=== PATIENT | male | born 1950 | race Caucasian/White ===

== ENCOUNTER 2019-09-21 13:36 | Outpatient (CLI) | payer MEDICARE, OTHER, SELFPAY ==
--- NOTE | ~2019-09-21 | CT_ITS ---
EXAMINATION: CT sinus wo con DATE: 09/21/2019 14:07 INDICATION: Chronic congestion. Chronic sinusitis. TECHNIQUE: Computed tomography (CT) of the paranasal sinuses was performed without contrast. Iterativ e reconstruction technique was employed. Exam dose: 269.96 mGy-cm total exam DLP. COMPARISON: None FINDINGS: There is rightward deviation of the nasal septum. Bilateral fernando bullosa of the middle nasal turbinates. There is interlamellar cell of the left midd le nasal turbinate as well. The nasal turbinates are moderately symmetrically enlarged. With the exce ption of partial opacification of the right ethmoid bulla, the ostiomeatal units are patent. With the exception of mild patchy opacification occasional bilateral ethmoid air cells, the paranasal sinuses are normally developed and aerated. The mastoid air cells are normally developed and aerated. IMPRESSION: Mild bilateral ethmoid soft tissue opacification, opacification of right ethmoid bulla Bilateral middle nasal turbinate fernando bullosa and interlamellar cell of left middle nasal turbinate Rightward deviation of nasal septum Reviewed, dictated and finalized at Location A. Reviewed, dictated and finalized at location B. TRANSPORTATION OPERATOR
== END 2019-09-21 13:37 | disposition home or self-care (01) ==
PROVIDERS: Visit Provider Otolaryngology
DX: J32.9 Chronic sinusitis, unspecified (principal); J34.2 Deviated nasal septum
CPT/HCPCS: 70486

== ENCOUNTER 2025-07-13 03:58 | Emergency (ER) | payer MEDICARE, SELFPAY ==
--- OUTSIDE RECORDS SUMMARY | 2024-09-24 02:30 | XMS_ITS ---
Author Organization [facility] Address [address] [facility] [address] [place] [address] Care Team Providers Care Lag Screwer Name Role Phone Gume Trujillo Primary Care Provider [phone] Ronnie AUSTIN, Gume Unavailable Unavailable REASON FOR VISIT AWV Encounters Encounter Location Date Provider Diagnosis [facility] [address] [facility] [address] [place] [address] 09/24/2024 Gume Trujillo Plan Of Treatment Next Appt Details Provider Name:Gume Trujillo, 09/30/2025 08:00:00 AM, [address] [facility] [address], [place], [address], Progress Notes * Jose MORFINDOB:1950 ([age] yo M)Acc No.[id number]:09/24/2024 Progress Note Patient: Jose NUNEZ Provider: Sandra TRUJILLO MD :1950 A ge:74 Y S ex:Male Date:09/24/2024 Address:[address] [place], [place] [id number] Subjective: * Chief Complaints: * 1 . AWV. * Medical History: Objective: * Vitals: Assessment: Plan: * Treatment: * Billing Information: * Visit Code: * Procedure Codes: * Electronic signature of Carlos Trujillo MD on 07/13/2025 at 04:20 AM COMMUNITY PROGRAM ASSISTANT Sign off status: Pending * Provider: Sandra TRUJILLO MD Date: 0 09/24/2024 Generated for Zenaida churchill/Keren/Elena on: 1 09/13/2024 04:20 AM COMMUNITY PROGRAM ASSISTANT
--- OUTSIDE RECORDS SUMMARY | 2025-04-20 04:15 | XMS_ITS ---
Author Organization [facility] Address [address] [place], [place] [id number] Care Team Providers Care Rn Radiation Name Role Phone Nick Correa DO Unavailable [phone] Gume Trujillo Unavailable Unavailable Allergies No Known Allergies REASON FOR VISIT bilateral inguinal hernia Medications Medication SIG (Take, Route, Frequency, Duration) Notes Start Date End Date Status Propranolol HCl 10 MG Oral; Duration: 90 Days Active methylPREDNISolone 4 MG Oral; Duration: 6 Days Active traZODone HCl 50 MG Oral; Duration: 90 Days Active Lisinopril 5 MG Oral; Duration: 90 Days Active Metoprolol Tartrate 50 MG Oral; Duration: 90 Days Active Vital Signs Temperature 98.6 degrees Fahrenheit 04/20/20 25 Blood pressure systolic 132 mm Hg 04/20/20 25 Blood pressure diastolic 81 mm Hg 025 Heart Rate 64 /min 04/20/2025 Height 74 in 04/20/2025 Weight 170.2 lbs 04/20/2025 BMI 21.85 kg/m2 04/20/2025 Oximetry 98 % 04/20/2025 Height-cm 187.96 cm 04/20/2025 Weight-kg 77.2 kg 04/20/2025 Encounters Encounter Location Date Provider Diagnosis [facility] [address] [place], [place] [id number] 04/20/2025 Nick Correa Plan Of Treatment Next Appt Details Provider Name:Nick chin, 07/20/2025 09:00:00 AM, [address], [place], [place], [id number], Progress Notes * Jose MORFINDOB:1950 ([age] yo M)Acc No.[id number]:04/20/2025 Patient: Jose NUNEZ Provider: Johny Correa DO :1950 A ge:75 Y S ex:Male Date:04/20/2025 Address:[address] [place], [place] [id number] Subjective: * Chief Complaints: * 1 . Bilateral inguinal hernia. * Medical History: H ypertension. * Surgical History: 1 09/19/2018 Cataract Surgery . * Medications: T aking Metoprolol Tartrate 50 MG Tablet Oral , Taking Lisinopril 5 MG Tablet Oral , Taking traZODone HCl 50 MG Tablet Oral , Taking methylPREDNISolone 4 MG Tablet Therapy Pack Oral , Taking Propranolol HCl 10 MG Tablet Oral * Allergies: N .K.D.A. Objective: * Vitals: W t:170.2, Ht: 74, HT: 6'2, BMI:21.85, Oxygen sat %:98, HR:64, BP:132/81, Temp:98.6, Wt-k.2, Ht-cm: 187.96, Body Surface Area: 2.01. Assessment: Plan: * Treatment: * Billing Information: * Visit Code: * Procedure Codes: * Electronic signature of Perry Correa DO, [id number] on 07/13/2025 at 04:20 AM PASTOR Sign off status: Pending * Provider: Johny Correa DO Date: 0 04/20/2025 Generated for Zenaida churchill/Keren/Colinitting on: 09/13/2024 04:20 AM PASTOR
--- OUTSIDE RECORDS SUMMARY | 2025-07-11 01:15 | XMS_ITS ---
Author Organization [facility] Address [address] [place], [place] [id number] Care Team Providers Care Technical Intern Name Role Phone Nick Correa DO Unavailable [phone] Gume Trujillo Unavailable Unavailable REASON FOR VISIT Inguinal hernia @730 aware Encounters Encounter Location Date Provider Diagnosis [facility] [address] [place], [place] [id number] 07/11/2025 Nick Correa Plan Of Treatment Next Appt Details Provider Name:Nick chin, 07/20/2025 09:00:00 AM, [address], [place], [place], [phone], Progress Notes * NAVJOTJose EvansDOB:1950 ([age] yo M)Acc No.[id number]:07/11/2025 Patient: Jose NUNEZ Provider: Johny Correa DO :1950 A ge:75 Y S ex:Male Date:07/11/2025 Address:[address] [place], [place] [id number] Subjective: * Chief Complaints: * 1 . Inguinal hernia @730 aware. * Medical History: Objective: * Vitals: Past Vitals:* 04/20/2025 Wt:170.2, BMI:21.85, BP:132/ 81 Assessment: Plan: * Treatment: * Billing Information: * Visit Code: * Procedure Codes: * Electronic signature of Perry Correa DO, [id number] on 07/13/2025 at 04:20 AM DECK MATE Sign off status: Pending * Provider: Johny Correa DO Date: 09/11/2024 Generated for Zenaida churchill/Keren/Elena on: 09/13/2024 04:20 AM DECK MATE
[2025-07-13] VITALS (41 sets, daily range): BP systolic 106–158; BP diastolic 62–93; PULSE 66–145; RESP 10–29; TEMP 36.8–37.6; O2SAT 91–100
--- NOTE | ~2025-07-13 | XR_ITS ---
EXAMINATION: AP abdomen: DATE: 07/13/2025 INDICATION: Nasogastric tube placement. TECHNIQUE: Supine AP view of the abdomen were obtained. COMPARISON: Small bowel follow-through dated 07/13/2025. FINDINGS: Tip of the nasogastric tube is in the proximal stomach. Contrast is noted in the fundus of the stomach. Contrast is also noted in the small bowel loops from earlier study. IMPRESSION: 1. . A nasogastric tube is noted within the proximal stomach. Reviewed, dictated and finalized at location T. ER PRINTER
--- NOTE | ~2025-07-13 | CT_ITS ---
EXAMINATION: CT abdomen pelvis w con DATE: 07/13/2025 05:46 INDICATION: Abdominal pain. TECHNIQUE: Computed tomography (CT) of the abdomen and pelvis was performed with 100 mL Omnipaque 350 intravenous contrast. Automated exposure control and iterative reconstruction technique were employed. The dose-length product was 436.38 mGy-cm. COMPARISON: None. FINDINGS: The visualized portions of the lung bases demonstrate mild atelectasis. No pleural effusion. The heart size is normal. There are coronary artery calcifications. No pericardial effusion. The liver, gallbladder, spleen, pancreas, and adrenal glands are normal. There are cysts in the kidneys rojas suring up to 2.6 cm on the right. The appendix is normal. There are multiple dilated loops of small bowel with possible transition point in left lower quadrant. The distal small bowel is decompressed. There is gas in the anterior pelvic soft tissues, consistent with recent surgery. There is fluid in left inguinal canal, likely a seroma. There is an umbilical hernia containing a wall of nonobstructed small bowel. There are no pathologically enlarged lymph nodes. There is a small volume of ascites. There is severe lumbar spondylosis. IMPRESSION: 1. Dilated small bowel with possible transition point in left lower quadrant, consistent with adynamic ileus versus small bowel obstruction. 2. Umbilical hernia containing a wall of nonobstructed small bowel. 3. Small volume of ascites. Reviewed, dictated and finalized at location E. UET DIRECTOR IMPRESSION: 1. Dilated small bowel with possible transition point in left lower quadrant, c onsistent with adynamic ileus versus small bowel obstruction. 2. Umbilical hernia containing a wall of nonobstructed small bowel. 3. Small volume of ascites.
--- NOTE | ~2025-07-13 | XR_ITS ---
Examination: XR abdomen gastric tube insert Clinical History: NG placement Comparison: CT abdomen pelvis earlier same day Technique: Portable AP upright abdomen Findings/impression: 1. NG tube in place with sidehole just past GE junction. 2. Small bowel obstruction poorly seen. Reviewed, dictated and finalized at location R. ANT PRINT OPERATOR
--- NOTE | ~2025-07-13 | XR_ITS ---
EXAM/PROCEDURE: XR sm bowel follow through WS HISTORY: Ileus vs SBO COMPARISON: None available. TECHNIQUE: 240 mL water-soluble contrast injected into gastric catheter. After approximately 1.5 hours, 100 mL was aspirated. FINDINGS: On the rib puller image, gastric catheter is present. On the 15 minute image, small amount of contrast extends into the duodenum. At 30 minutes, contrast extends into the proximal jejunum. Contrast flows through most of the jejunum by 3 hours but does not clearly extend to the distal ileum at 5.5 hours. No extravasation of contrast seen. No obvious mass identified. IMPRESSION: Abnormally delayed passage of contrast with no contrast extending through the distal or terminal ileum at 5.5 hours. Findings are consistent with severe ileus or small bowel obstruction. A follow-up KUB in 4 to 6 hours may be helpful in further characterizing passage of enteric contrast and the possible presence of small bowel obstruction. Reviewed, dictated and finalized at location A. EL RETROFIT DESIGNER IMPRESSION: Abnormally delayed passage of contrast with no contrast extending through the d istal or terminal ileum at 5.5 hours. Findings are consistent with severe ileus or small bowel obstruction. A follow-up KUB in 4 to 6 hours may be helpful in further characterizing passage of enteric contrast and the possible presence of small bowel obstruction.
[2025-07-13] MEDS: LACTATED RINGERS 1,000 ML 999 ML IV CONT ×2 (04:07→04:41)
--- NOTE | 2025-07-13 04:14 | ED_ITS ---
HPI - General Adult General Chief complaint: Abdominal Pain <Sánchez Guerrero MD - Last Filed: 07/13/25 06:53> Stated complaint: Abd pain/vomiting; recent hernia surg <Sánchez Guerrero MD - Last Filed: 07/13/25 06:53> Time Seen by Provider: 07/13/25 04:02 <Sánchez Guerrero MD - Last Filed: 07/13/25 06:53> History of Present Illness HPI narrative: 75-year-old male present to the emergency department for evaluation for nausea abdominal cramping and abdominal pain. Patient did have laparoscopic hernia repair at [facility] on Friday morning. Patient reports he started having worsening pain and nausea with the course of the evening. Patient called EMS and EN route patient was treated with 4 mg of Zofran he states this did help his symptoms. <Sánchez Guerrero MD - Last Filed: 07/13/25 06:53> Related Data Allergies/adverse reactions: Allergies Allergy/AdvReac Type Severity Reaction Status Date / Time No Known Allergies Allergy Verified 07/13/25 04:06 <Sánchez Guerrero MD - Last Filed: 07/13/25 06:53> Review of Systems 2 Review of Systems: All systems reviewed & are unremarkable except as noted in HPI and below <Sánchez Guerrero MD - Last Filed: 07/13/25 06:53> [facility] Past Medical History Medical History: Medical History (Updated 07/13/25 @ 17:29 by Dennis Mike MD) Hypertension Afib <Sánchez Guerrero MD - Last Filed: 07/13/25 06:53> Surgical History Surgical History: Surgical History (Updated 07/13/25 @ 17:28 by Dennis Mike MD) H/O inguinal hernia repair <Sánchez Guerrero MD - Last Filed: 07/13/25 06:53> Exam 2 Narrative: APPEARANCE: Uncomfortable appearing HEAD: normocephalic, atraumatic. EYES: PERRLA/EOMI, conjunctivae clear. NOSE: Normal no drainage NECK: Supple. No adenopathy, no masses. RESPIRATORY: Airway patent, respirations nonlabored. Clear to auscultation bilaterally, no rales, rhonchi, wheezing. CARDIOVASCULAR: Regular rate and rhythm without murmurs rubs or gallops. ABDOMINAL: Distended abdomen, decreased bowel sounds, well-appearing trocar sites MUSCULOSKELETAL: Moves all extremities. Strength/ROM intact, No edema, No calf tenderness. NEURO: Alert. Cranial nerves II through XII intact. Good gait. Good coordination SKIN: Warm, dry. Normal Color (Copy and paste of Dr. Guerrero's exam a nd placed in the proper section of the chart) <Dennis Mike MD - Last Filed: 07/13/25 18:00> Course Course Emergency Course: APPEARANCE: Uncomfortable appearing HEAD: normocephalic, atraumatic. EYES: PERRLA/EOMI, conjunctivae clear. NOSE: Normal no drainage NECK: Supple. No adenopathy, no masses. RESPIRATORY: Airway patent, respirations nonlabored. Clear to auscultation bilaterally, no rales, rhonchi, wheezing. CARDIOVASCULAR: Regular rate and rhythm without murmurs rubs or gallops. ABDOMINAL: Distended abdomen, decreased bowel sounds, well-appearing trocar sites MUSCULOSKELETAL: Moves all extremities. Strength/ROM intact, No edema, No calf tenderness. NEURO: Alert. Cranial nerves II through XII intact. Good gait. Good coordination SKIN: Warm, dry. Normal Color <Sánchez Guerrero MD - Last Filed: 07/13/25 06:53> Vital Signs Vital signs: Vital Signs Temperature 98.2 F 07/13/25 03:58 Pulse Rate 67 07/13/25 03:58 Respiratory Rate 15 07/13/25 03:58 Blood Pressure 145/75 H 07/13/25 03:58 Pulse Oximetry 95 07/13/25 03:58 Oxygen Delivery Room Air 07/13/25 03:58 Temperature 98.5 F 07/13/25 06:00 Pulse Rate 145 H 07/13/25 17:20 Respiratory Rate 14 07/13/25 14:31 Blood Pressure 143/79 H 07/13/25 17:20 Pulse Oximetry 98 07/13/25 14:00 Oxygen Delivery Room Air 07/13/25 03:58 <Sánchez Guerrero MD - Last Filed: 07/13/25 06:53> Vital Signs Temperature 98.2 F 07/13/25 03:58 Pulse Rate 67 07/13/25 03:58 Respiratory Rate 15 07/13/25 03:58 Blood Pressure 145/75 H 07/13/25 03:58 Pulse Oximetry 95 07/13/25 03:58 Oxygen Delivery Room Air 07/13/25 03:58 Temperature 98.5 F 07/13/25 06:00 Pulse Rate 145 H 07/13/25 17:20 Respiratory Rate 14 07/13/25 14:31 Blood Pressure 143/79 H 07/13/25 17:20 Pulse Oximetry 98 07/13/25 14:00 Oxygen Delivery Room Air 07/13/25 03:58 <Dennis Mike MD - Last Filed: 07/13/25 18:00> [facility] MDM Narrative Medical decision making narrative: [age] old male presents emergency department for evaluation for abdominal pain postop. Patient is currently afebrile but does have a leukocytosis of 12.1 hemoglobin of 14.9. INR 1.1. No significant abnormalities on his CMP UA was negative for infection. CT scan is concerning for a small bowel obstruction with a transition point in the left lower quadrant. Patient had surgery at [facility] by Dr. Chow. NG tube is being placed for decompression. I did touch base with surgeon on-call for [place] and he did recommend touching base with [facility] as well. I did discuss the case with transfer services at [facility] and at time of sign-out physician call Back is pending. Patient's son, Charles Morfin, is a vascular surgeon at [facility]. His call back nbumber [phone] <Sánchez Guerrero MD - Last Filed: 07/13/25 06:53> [age] old male presents emergency department for evaluation for abdominal pain postop. Patient is currently afebrile but does have a leukocytosis of 12.1 hemoglobin of 14.9. INR 1.1. No significant abnormalities on his CMP UA was negative for infection. CT scan is concerning for a small bowel obstruction with a transition point in the left lower quadrant. Patient had surgery at [facility] by Dr. Chow. NG tube is being placed for decompression. I did touch base with surgeon on-call for [place] and he did recommend touching base with [facility] as well. I did discuss the case with transfer services at [facility] and at time of sign-out physician call Back is pending. Patient's son, Charles Morfin, is a vascular surgeon at [facility] in [place]. His call back bumber [phone] 1721: Patient has had a prolonged stay in the emergency room. I did speak with the patient's general surgeon at [facility] early this morning. He recommended the patient receive a small bowel follow-through to evaluate for possible obstruction versus ileus. Patient has had a 5.5 hour course of imaging and there is still concern for severe ileus versus bowel obstruction. I have spoken with the patient's son in [place]. I have called back the transfer line to inform them of the imaging results. I did not receive a return call from [facility] so I called them back again. Apparently the general surgeon had relayed to the transfer line that he still only thinks that this is a bowel obstruction and does not want the patient transferred because he does not want the patient to get a bill. Unfortunately patient has also gone into atrial fibrillation with rapid ventricular rate. He has been given IV metoprolol 5mg, IV diltiazem 10mg, and placed on diltiazem drip without improvement of his heart rate. He has also received 3 L IV fluid through his duration in the ER. Patient is not having chest pain or shortness of breath. He has had over 1200 mL of output from his NG tube. Patient has had multiple episodes of antiemetics and Dilaudid for pain. 1757: Accepted by Dr. Garner at [facility]. Patient with significant tachycardia still despite treatment of the atrial fibrillation. Will discontinue the drip and give patient a 1 time push of amiodarone at the request of the hospitalist at [facility] and then they will manage him from there. <Dennis Mike MD - Last Filed: 07/13/25 18:00> Differential Diagnosis Differential Diagnosis: Small-bowel obstruction, perforated viscus, ileus, urinary retention < Dennis Mike MD - Last Filed: 07/13/25 18:00> Lab Data MDM Lab Attestation statement: I personally reviewed the patient's lab results. <Dennis Mike MD - Last Filed: 07/13/25 18:00> Result diagrams: 07/13/25 04:10 07/13/25 04:10 <Sánchez Guerrero MD - Last Filed: 07/13/25 06:53> Labs: Lab Results 07/13/25 07/13/25 07/13/25 Range/Units 04:10 05:57 06:24 WBC 12.1 H (4.5-10.0) K/mm3 RBC 4.46 L (4.6-6.20) M/mm3 Hgb 14.9 (14.0-18.0) g/dL Hct 43.7 (42.0-52.0) % MCV 98.0 (80-100) fl MCH 33.4 (26-34) pg MCHC 34.1 (32-36) g/dl RDW 12.4 (11.5-14.5) % Plt Count 196 (150-375) k/mm3 MPV 10.7 H (7.4-10.4) fl Immature Gran % (Auto) 0.3 (0-0.5) % Neut % (Auto) 81.8 H (45.5-73.1) % Lymph % (Auto) 6.2 L (18.3-44.2) % Rush % (Auto) 11.4 H (2.6-8.5) % Eos % (Auto) 0.0 (0-4.4) % Baso % (Auto) 0.3 (0.2-1.2) % Lymph # (Auto) 0.75 L (0.9-3.2) K/mm3 Rush # (Auto) 1.4 H (0.1-0.6) K/mm3 Eos # (Auto) 0.0 (0-0.3) K/mm3 Baso # (Auto) 0.0 (0.0-0.1) K/mm3 Abs Immat Gran (auto) 0.04 H (0.00-0.031) K/mm3 Absolute Neuts (auto) 9.9 H (1.3-6.7) K/mm3 Absolute Nucleated RBC 0.000 (0.0-0.012) K/mm3 Nucleated RBC % 0.0 (0.0-0.2) % PT 14.3 (11.1-14.7) Seconds INR 1.1 APTT 24.8 (22.3-36.8) Seconds Sodium 135 L (137-145) mmol/L Potassium 4.1 (3.4-5.0) mmol/L Chloride 102 (98-107) mmol/L Carbon Dioxide 28 (22-30) mmol/L Anion Gap 5 (4-12) mmol/L BUN 32 H (9-20) mg/dL Creatinine 1.45 H (0.7-1.3) mg/dL Estim Creat Clear Calc 45 ml/min Estimated GFR 48 L (59 - ) Glucose 147 H (65-110) mg/dL Lactic Acid 2.4 H 1.9 (0.7-2.0) mmol/L Calcium 10.1 (8.4-10.2) mg/dL Total Bilirubin 1.0 (0.2-1.3) mg/dL AST 41 (17-59) U/L ALT 26 (6-50) U/L Alkaline Phosphatase 78 (38-126) U/L Total Protein 7.6 (6.3-8.2) g/dL Albumin 4.2 (3.5-5.1) g/dL Lipase 65 (23-300) U/L Urine Color Yellow (Yellow) Urine Appearance Clear (Clear) Urine pH 5.5 (5.0-9.0) Ur Specific [place] > 1.045 H (1.001-1.035) Urine Protein Trace (Negative) mg/dL Urine Glucose (UA) Negative (Negative) mg/dL Urine Ketones 1+ H (Negative) mg/dL Ur Blood (Man) Negative (Negative) Urine Nitrate Negative (Negative) Urine Bilirubin Negative (Negative) Urine Urobilinogen 0.2 (<2.0) mg/dL Leukocyte Esterase Rfl Negative (Negative) SOCORRO/UL Urine RBC 0-2 (0-2) /hpf Urine WBC 0-5 (0-3) /hpf Ur Squamous Epith Cells None seen (Few) /hpf Urine Bacteria None seen /hpf Urine Casts 3-5 <Sánchez Guerrero MD - Last Filed: 07/13/25 06:53> Lab Results 07/13/25 07/13/25 07/13/25 Range/Units 04:10 05:57 06:24 WBC 12.1 H (4.5-10.0) K/mm3 RBC 4.46 L (4.6-6.20) M/mm3 Hgb 14.9 (14.0-18.0) g/dL Hct 43.7 (42.0-52.0) % MCV 98.0 (80-100) fl MCH 33.4 (26-34) pg MCHC 34.1 (32-36) g/dl RDW 12.4 (11.5-14.5) % Plt Count 196 (150-375) k/mm3 MPV 10.7 H (7.4-10.4) fl Immature Gran % (Auto) 0.3 (0-0.5) % Neut % (Auto) 81.8 H (45.5-73.1) % Lymph % (Auto) 6.2 L (18.3-44.2) % Rush % (Auto) 11.4 H (2.6-8.5) % Eos % (Auto) 0.0 (0-4.4) % Baso % (Auto) 0.3 (0.2-1.2) % Lymph # (Auto) 0.75 L (0.9-3.2) K/mm3 Rush # (Auto) 1.4 H (0.1-0.6) K/mm3 Eos # (Auto) 0.0 (0-0.3) K/mm3 Baso # (Auto) 0.0 (0.0-0.1) K/mm3 Abs Immat Gran (auto) 0.04 H (0.00-0.031) K/mm3 Absolute Neuts (auto) 9.9 H (1.3-6.7) K/mm3 Absolute Nucleated RBC 0.000 (0.0-0.012) K/mm3 Nucleated RBC % 0.0 (0.0-0.2) % PT 14.3 (11.1-14.7) Seconds INR 1.1 APTT 24.8 (22.3-36.8) Seconds Sodium 135 L (137-145) mmol/L Potassium 4.1 (3.4-5.0) mmol/L Chloride 102 (98-107) mmol/L Carbon Dioxide 28 (22-30) mmol/L Anion Gap 5 (4-12) mmol/L BUN 32 H (9-20) mg/dL Creatinine 1.45 H (0.7-1.3) mg/dL Estim Creat Clear Calc 45 ml/min Estimated GFR 48 L (59 - ) Glucose 147 H (65-110) mg/dL Lactic Acid 2.4 H 1.9 (0.7-2.0) mmol/L Calcium 10.1 (8.4-10.2) mg/dL Total Bilirubin 1.0 (0.2-1.3) mg/dL AST 41 (17-59) U/L ALT 26 (6-50) U/L Alkaline Phosphatase 78 (38-126) U/L Total Protein 7.6 (6.3-8.2) g/dL Albumin 4.2 (3.5-5.1) g/dL Lipase 65 (23-300) U/L Urine Color Yellow (Yellow) Urine Appearance Clear (Clear) Urine pH 5.5 (5.0-9.0) Ur Specific [place] > 1.045 H (1.001-1.035) Urine Protein Trace (Negative) mg/dL Urine Glucose (UA) Negative (Negative) mg/dL Urine Ketones 1+ H (Negative) mg/dL Ur Blood (Man) Negative (Negative) Urine Nitrate Negative (Negative) Urine Bilirubin Negative (Negative) Urine Urobilinogen 0.2 (<2.0) mg/dL Leukocyte Esterase Rfl Negative (Negative) SOCORRO/UL Urine RBC 0-2 (0-2) /hpf Urine WBC 0-5 (0-3) /hpf Ur Squamous Epith Cells None seen (Few) /hpf Urine Bacteria None seen /hpf Urine Casts 3-5 <Dennis Mike MD - Last Filed: 07/13/25 18:00> Imaging Data Radiologist's impression: ITS Impressions Abdomen/Pelvis CT 07/13/25 07:16 IMPRESSION: 1. Dilated small bowel with possible transition point in left lower quadrant, consistent with adynamic ileus versus small bowel obstruction. 2. Umbilical hernia containing a wall of nonobstructed small bowel. 3. Small volume of ascites. Small Bowel X-Ray 07/13/25 14:51 IMPRESSION: Abnormally delayed passage of contrast with no contrast extending through the distal or terminal ileum at 5.5 hours. Findings are consistent with severe ileus or small bowel obstruction. A follow-up KUB in 4 to 6 hours may be helpful in further characterizing passage of enteric contrast and the possible presence of small bowel obstruction. Overnight read, CT abdomen pelvis with contrast impression mildly dilated fluid- filled loops of small bowel seen with abdomen and pelvis with underdistention and distal small bowel loops and probable transition point left lower quadrant. Findings are consistent with small-bowel obstruction. Recommend surgical consultation. Mild free fluid seen within the abdomen pelvis. Minimal mesenteric edema. No definite bowel wall thickening. No bowel wall pneumatosis. No gross pneumoperitoneum. Postsurgical changes seen within the left inguinal region with subcutaneous gas in the groin and upper thighs. No acute appendicitis. No obstructive uropathy. No airspace consolidation, pulmonary edema or pleural effusion. <Sánchez Guerrero MD - Last Filed: 07/13/25 06:53> ITS Impressions Abdomen/Pelvis CT 07/13/25 07:16 IMPRESSION: 1. Dilated small bowel with possible transition point in left lower quadrant, consistent with adynamic ileus versus small bowel obstruction. 2. Umbilical hernia containing a wall of nonobstructed small bowel. 3. Small volume of ascites. Small Bowel X-Ray 07/13/25 14:51 IMPRESSION: Abnormally delayed passage of contrast with no contrast extending through the distal or terminal ileum at 5.5 hours. Findings are consistent with severe ileus or small bowel obstruction. A follow-up KUB in 4 to 6 hours may be helpful in further characterizing passage of enteric contrast and the possible presence of small bowel obstruction. <Dennis Mike MD - Last Filed: 07/13/25 18:00> ECG Data EKG #1: Attestation: I personally reviewed and interpreted this ECG as follows: <Dennis Mike MD - Last Filed: 07/13/25 18:00> ECG completion date: 07/13/25 <Dennis Mike MD - Last Filed: 07/13/25 18:00> ECG completion time: 15:33 <Dennis Mike MD - Last Filed: 07/13/25 18:00> tachycardia (132), atrial fibrillation, non-specific ST changes, normal QRS, normal QT and left axis <Dennis Mike MD - Last Filed: 07/13/25 18:00> Critical Care Time Critical Care Time Critical Care Time: Yes <Dennis Mike MD - Last Filed: 07/13/25 18:00> Time Type: Intermittent <Dennis Mike MD - Last Filed: 07/13/25 18:00> Initial evaluation, discuss w/ involved parties, attempting to gather old records: N/A <Dennis Mike MD - Last Filed: 07/13/25 18:00> Documenting medical record: 5 minutes <Dennis Mike MD - Last Filed: 07/13/25 18:00> Review of results (EKG's, labs, imaging): 10 minutes <Dennis Mike MD - Last Filed: 07/13/25 18:00> Serial repeat bedside evaluation: 10 minutes <Dennis Mike MD - Last Filed: 07/13/25 18:00> Discussing case with multiple memebers of the care team and consultants: 10 minutes <Dennis Mike MD - Last Filed: 07/13/25 18:00> Total Critical Care Time: 35 <Dennis Mike MD - Last Filed: 07/13/25 18:00> Discharge Plan Discharge Clinical Impression: Atrial fibrillation with RVR, SBO (small bowel obstruction) <Sánchez Guerrero MD - Last Filed: 07/13/25 06:53> Patient Disposition: Acute Care Hospital <Sánchez Guerrero MD - Last Filed: 07/13/25 06:53> Condition: Stable <Sánchez Guerrero MD - Last Filed: 07/13/25 06:53> Instructions: Antibiotic Form <Sánchez Guerrero MD - Last Filed: 07/13/25 06:53> Patient Language: Macedonian <Sánchez Guerrero MD - Last Filed: 07/13/25 06:53> Follow-up/Referrals: PHYSICIAN NOT ON STAFF,NONSTAFF [Non-Staff] <Sánchez Guerrero MD - Last Filed: 07/13/25 06:53>
[2025-07-13 04:18] LABS: Hematocrit 43.7 % (42.0-52.0); Hemoglobin 14.9 g/dL (14.0-18.0); Immature Granulocyte Percent A 0.3 % (0-0.5); Lymphocytes Absolute Auto 0.75 K/mm3 (0.9-3.2); Mean Corpuscular HGB Conc 34.1 g/dl (32-36); Mean Corpuscular Hemoglobin 33.4 pg (26-34); Mean Corpuscular Volume 98.0 fl (80-100); Nucleated Red Blood Cells Absolute Auto 0.000 K/mm3 (0.0-0.012); Nucleated Red Blood Cells Perc 0.0 % (0.0-0.2); Platelet Count Result 196 k/mm3 (150-375); Red Blood Count 4.46 M/mm3 (4.6-6.20); White Blood Count 12.1 K/mm3 (4.5-10.0)
--- OUTSIDE RECORDS SUMMARY | 2025-07-13 04:20 | XMS_ITS | Encounter Summary ---
Author Organization [facility] Address [address] [place] [address] Care Team Providers Care Apprentice Lineman Third Step Name Role Phone Unavailable Primary Care Provider Unavailabl e Encounter Details Date Type Department Care Team (Late st Contact Info) Description 02/09/2021 Lab Requisition [facility] Derm[facility] Lab [address] [place] [address] Hodan Doe MD [address] [place] [address] Social History Tobacco Use Types Packs/Day Years Used Date Smoking Tobacco: Never Assessed Sex and Gender Information Value Date Recorded Sex Assigned at Not on file Legal Sex Male 7:23 AM CDT Gender Identity Not on file Sexual Orientation Not on file documented as of this encounter Plan of Treatment Not on file documented as of this encounter Procedures Procedure Name Priority Date/Time Associated Diagnosis Comments DERMATOPATHOLOGY Routine 02/08/2021 12:0 0 AM CDT documented in this encounter Results * DERMATOPATHOLOGY (02/08/2021 12:00 AM CDT) Case Report Dermatopathology Report Case: [id number] Authorizing Provider: Hodan Doe MD Collected: 02/08/2021 12:00 AM Ordering Location: [facility] Derm[facility] Lab Received: 02/09/2021 01:10 PM Pathologist: Bing Hooper MD Specimen: Skin, left preauricular 6:29 PM CDT DERMATOPATHOLOGY LABORATORY Final Diagnosis Specimen A. SKIN, left preauricular: BASAL CELL CARCINOMA (C44.319) (see microscopic description) 1 6:29 PM CDT DERMATOPATHOLOGY LABORATORY at 1829 CDT Clinical History BCC. 1 6:29 PM CDT DERMATOPATHOLOGY LABORATORY Gross Description Specimen A: Received is one formalin filled container labeled with the patient's name and designated left preauricular. The specimen consists of a shave biopsy measuring [id number]. Jar 0. 1 6:29 PM CDT DERMATOPATHOLOGY LABORATORY Microscopic Description Specimen A. SKIN, left preauricular: Sections show superficial fragments of skin. Collections of basaloid cells are present in the dermis, which are highlighted on a Estrada-EP4 immunohistochemical stain. Original and deeper sections were reviewed. 1 6:29 PM CDT DERMATOPATHOLOGY LABORATORY Disclaimer An external and internal positive and negative controls are appropriate for the histochemical, immunohistochemical and immunofluorescence stain(s) in this case (if any), except where stated explicitly. The performance characteristics of the stain(s) cited in this report were developed and its performance characteristic determined by the Dermatopathology Laboratory at [facility], directed by Dr. Bret Deal. These tests need not be, and therefore are not, approved by the [place] Food and Drug Administration. The tests are used for clinical purposes. Billing Codes Specimen Charges Stain Charges 07635 1 40881 1 1 6:29 PM CDT DERMATOPATHOLOGY LABORATORY Embedded Images 1 6:29 PM CDT DERMATOPATHOLOGY LABORATORY Pathology/Cytolog y TISSUE SPECIMEN FROM SKIN / Unknown 02/08/2021 02/09/2021 1:10 PM CDT us Hodan Doe MD LAB - PATHOLOGY/CYTOLOGY O RDERABLES Final Result DERMATOPATHOLOGY LABORATORY [facility] - Department of Dermatology [address] [place] [address], [facility] [phone] documented in this encounter Visit Diagnoses Not on filedocumented in this encounter
--- OUTSIDE RECORDS SUMMARY | 2025-07-13 04:20 | XMS_ITS | Data Portability ---
Author Organization [place] [facility], [place] - DME Address [address] [place] [address] Care Team Providers Care Motor Electrician Name Role Phone TAISHA, KING Primary Care Provider Assessment Encounter Date Assessment Date Assessment LastModified by Organization Details LastModified Time 08/14/2023 08/14/2023 Today, I have recommended topical treatment of the lesion with 17% aniyah. acid solution following shaving of the lesion. The patient was given oral and written post-procedura l wound care instructions. For his arch pain he will continue with a combination of stretching exercises, new shoes, rest, avoiding high impact activities. f/u prn. [email or web address] Not available 08/14/2023 10:57:10 10/14/2023 10/14/2023 Today, I have recommended topical treatment of the lesion with 17% aniyah. acid solution following shaving of the lesion. The patient was given oral and written post-procedura l wound care instructions. For his arch pain he will continue with a combination of stretching exercises, new shoes, rest, avoiding high impact activities. f/u prn. [email or web address] Not available 10/14/2023 09:37:52 02/24/2024 02/24/2024 Today, I have recommended topical treatment of the lesion with 17% aniyah. acid solution following shaving of the lesion. The patient was given oral and written post-procedura l wound care instructions. For his arch pain he will continue with a combination of stretching exercises, new shoes, rest, avoiding high impact activities. f/u prn. ckyramarios Not available 02/24/2024 16:30:27 08/19/2024 08/19/2024 Today, I have recommended topical treatment of the lesion with 17% aniyah. acid solution following shaving of the lesion. The patient was given oral and written post-procedura l wound care instructions. For his arch pain he will continue with a combination of stretching exercises, new shoes, rest, avoiding high impact activities. f/u prn. ckyramarios Not available 08/19/2024 16:18:29 02/14/2025 02/14/2025 Today, I have recommended topical treatment of the lesion with 17% aniyah. acid solution following shaving of the lesion. The patient was given oral and written post-procedura l wound care instructions. Right hallux nail was debrided today and Clarus applied. Topical N42 prescribed today to be applied daily. For his arch pain he will continue with a combination of stretching exercises, new shoes, rest, avoiding high impact activities. f/u prn. [email or web address] Not available 02/14/2025 09:27:11 Plan of Treatment Reminders Order Date Submit Date Provider Last Modified By Organization Details Last Modified Time Details Appointments None recorded. Lab None recorded. Referral None recorded. Procedures None recorded. Surgeries None recorded. Imaging None recorded. Medication Orders N42 pen applicator 2024 025 [facility], [id number] [place] [address], [place], [address], 09:28:36 Patient TargetsNo targets recorded. Patient Instructions Encounter Date Encounter Id Patient Instructions Last Modified By Organization Details Last Modified Time 02/14/2025 [id number] toenail fungus: care instructions [email or web address] Not available 02/14/2025 09:27:13 Reason for Referral None Reported. Problems No Known Problems Procedures Surgical History Date Name Laterality Status Provider Name and Address Organization Details Recorded Time 39097 Debride Mycotic <5 completed Marvin Padgett DPM [address] [place], [address], [facility] 02/14/2025 09:26:33 07/14/202 5 [id number] Wart- Canthur 1-14 completed Marvin S. Bhartiarioefrem, DPM [address] [place], [address], [place] [facility] 02/14/2025 09:26:27 5 [id number] Wart- Canthur 1-14 completed [place] SAb Padgett, DPM [address] [place], [address], [place] [facility] 08/19/2024 16:18:25 4 [id number] Wart- Canthur 1-14 completed Marvin SAb Padgett, DPM [address] [place], [address], [place] [facility] 02/24/2024 16:30:27 4 [id number] Marvin SAb Padgett, DPM [address] [place], [address], [place] [facility] 10/14/2023 09:38:25 4 [id number] Wart- Canthur 1-14 completed [place] S. Bhartiarioefrem, DPM [address] [place], [address], [place] [facility] 08/14/2023 10:55:57 3 [id number] Wart Canthur 1-14 completed Marvin S. Kyramarios, DPM [address] [place], [address], [place] [facility] 03/18/2023 13:15:18 3 [id number] Debride Mycotic <5 completed [place] S. Bhartiarios, DPM [address] [place], [address], [place] [facility] 10/16/2022 09:51:08 3 [id number] Wart Canthur 1-14 completed Marvin S. Kyramarios, DPM [address] [place], [address], [place] [facility] 08/27/2022 15:42:51 2 [id number] Debride Mycotic <5 completed [place] SAb Hayarioefrem, DPM [address] [place], [address], [place] [facility] 07/17/2022 10:01:31 2 [id number] Xray 2v Heel completed Marvin S. Bhartiarioefrem, DPM [address] [place], [address], [place] [facility] 07/17/2022 10:01:43 2 [id number] Debride Mycotic <5 completed Marvin SAb Padgett, DPM [address] [place], [address], [place] [facility] 03/22/2022 11:59:19 2 [id number] Wart- Canthur 1-14 completed Amrvin SAb Padgett, DPM [address] [place], [address], [place] [facility] 01/08/2022 09:27:21 2 [id number] Wart- Canthur 1-14 completed Marvin SAb Hayarioefrem, DPM [address] [place], [address], [place] [facility] 12/10/2021 10:50:42 1 [id number] Wart- Canthur 1-14 completed Marvin SAb Hayarioefrem, DPM [address] [place], [address], [facility] 08/22/2020 11:52:11 Xcapsl ctrc rmvl cplx wo ecp completed Arabella Shah [place] [facility] 08/21/2020 13:35:15 Imaging Results None recorded. Procedure Notes None recorded. Medical Equipment None Reported. Allergies Allergen ID Allergen Name Allergen Category Reaction Reaction Severity Criticality Documentation Date Start Date Code Code System Note Provider Name and Address Organization Details Recorded Time 31399 penicilli n G Not available Not available Not available Not available 08/21/2020 7980 RxNorm Arabella Shah null, [place] [facility] 13:31:11 Medications Name Sig Start Date Stop Date Status Note LastModified by Organization Details LastModified Time N42 pen applicator apply bid to affected toenail 2021 active Not Available Not Available Not Avai lable N42 pen applicator APPLY DAILY TO AFFECTED TOENAILS 2024 active Not Available Not Available Not Avai lable neomycin-po lymyxin-hyd rocort 3.5 mg/mL-10,00 0 unit/mL-1 % ear solution INSTILL 2 DROPS INTO RIGHT EAR 4 TIMES A DAY FOR 7 DAYS active Not Available Not Available No t Available trazodone 50 mg tablet TAKE 1 TABLET BY MOUTH EVERYDAY AT BEDTIME active Not Available Not Available No t Available lisinopril 20 mg-hydrochl orothiazide 12.5 mg tablet TAKE 1 TABLET BY MOUTH EVERY MORNING active Not Available Not Available No t Available azithromyci n 250 mg tablet TAKE 2 TABLETS BY MOUTH TODAY, THEN TAKE 1 TABLET DAILY FOR 4 DAYS DIRECTED 02/11 completed Not Available Not Available Not Available meloxicam 15 mg tablet TAKE 1 TABLET BY MOUTH EVERY DAY FOR 6 WEEKS active Not Available Not Available No t Available acetaminoph en 300 mg-codeine 30 mg tablet TAKE 1 TABLET BY MOUTH EVERY 4 HOURS NEEDED FOR PAIN active Not Available Not Available No t Available propranolol 10 mg tablet TAKE 1 TABLET BY MOUTH EVERY DAY active Not Available Not Available No t Available lisinopril 10 mg tablet TAKE 1 TABLET BY MOUTH EVERY DAY active Not Available Not Available No t Available metoprolol tartrate 50 mg tablet TAKE 1 TABLET BY MOUTH TWICE A DAY WITH FOOD FOR 90 DAYS active Not Available Not Available No t Available lisinopril 5 mg tablet TAKE 1 TABLET BY MOUTH TWICE A DAY FOR 90 DAYS active Not Available Not Available No t Available loteprednol etabonate 0.5 % eye drops,suspe nsion INSTILL 1 DROP INTO LEFT EYE 4 TIMES A DAY active Not Available Not Available No t Available lisinopril 10 mg-hydrochl orothiazide 12.5 mg tablet TAKE 1 TABLET BY MOUTH EVERY DAY active Not Available Not Available No t Available levofloxaci n 500 mg tablet TAKE 1 TABLET BY MOUTH EVERY DAY active Not Available Not Available No t Available methylpredn isolone 4 mg tablets in a dose pack TAKE 6 TABLETS ON DAY 1 DIRECTED ON PACKAGE AND DECREASE BY 1 TAB EACH DAY FOR A TOTAL OF 6 DAYS active Not Available Not Available No t Available clobetasol 0.05 % scalp solution APPLY TWICE DAILY TO SCALP active Not Available Not Available No t Available ondansetron 4 mg disintegrat ing tablet DISSOLVE 1 TABLET BY MOUTH 30 MINUTE PRIOR TO EACH PREP DOSE, THEN EVERY 4-6 HOURS NEEDED active Not Available Not Available No t Available sertraline 50 mg tablet TAKE 1 TABLET BY MOUTH EVERY DAY active Not Available Not Available No t Available loratadine 10 mg tablet TAKE 1 TABLET BY MOUTH EVERY DAY active Not Available Not Available No t Available amoxicillin 875 mg-potassiu m clavulanate 125 mg tablet TAKE 1 TABLET BY MOUTH TWICE A DAY 02/11 completed Not Available Not Available Not Available tobramycin 0.3 %-dexametha sone 0.1 % eye drops,suspe nsion INSTILL 1 DROP INTO BOTH EYES 4 TIMES A DAY active Not Available Not Available No t Available azithromyci n 500 mg tablet TAKE 1 TABLET BY MOUTH EVERY DAY active Not Available Not Available No t Available propranolol active Not Available Not A vailable Not Available trazodone active Not Available Not Leyla ilable Not Available Suprep Bowel Prep Kit 17.5 gram-3.13 gram-1.6 gram oral solution PLEASE SEE ATTACHED FOR DETAILED DIRECTION S active Not Available Not Available No t Available metoprolol [place]-hydrochl orothiaz active Not Available Not Available Not Available Plenvu 140 gram-9 gram-5.2 gram powder packs USE DIRECTED active Not Available Not Available No t Available Vitals Date Recorded Body height Body mass index (BMI) Body weight Provider Name and Address Organization Details Last Updated DateTime 08/14/2023 187.96 cm 23.1 kg/m2 64809.63 g Arabella Shah [facility] 08/14/2023 10:31:42 Date Recorded Body height Body mass index (BMI) Body weight Provider Name and Address Organization Details Last Updated DateTime 08/19/2024 187.96 cm 23.1 kg/m2 79869.63 g Arabella Shah [facility] 08/19/2024 15:42:53 Date Recorded Body height Body mass index (BMI) Body weight Provider Name and Address Organization Details Last Updated DateTime 10/14/2023 187.96 cm 23.1 kg/m2 76444.63 g Arabella Shah [facility] 10/14/2023 09:23:19 Date Recorded Body height Provider Name an d Address Organization Details Last Updated DateTime 02/14/2025 187.96 cm Arabella Shah [facility] 02/14/2025 09:13:14 Date Recorded Body height Body mass index (BMI) Body weight Provider Name and Address Organization Details Last Updated DateTime 02/24/2024 187.96 cm 23.1 kg/m2 60348.63 g Arabella Shah [facility] 02/24/2024 15:57:31 Social History Question Answer Notes LastModified by Organizat ion Details LastModified Time Tobacco Smoking Status Never Smoker Arabella Shah [facility] 08/21/2020 13:34:33 Size Of Shoes 10.5 [email or web address] Information not available 08/21/2020 Sex: Unknown Functional Status None recorded. Mental Status None recorded. Family History Relationship Description Onset Age of this Age Resolved Age Notes LastModified by Organization Details LastModified Time Father No current problems or disability [email or web address] Not available 08/21 13:35:43 Mother No current problems or disability [email or web address] Not available 08/21 13:35:43 Medical History Condition Response Tuberculosis or TB N Heart Problems N Ulcers on Legs or Feet N HIV or AIDS N Coronary Artery Disease N Gout N Seizure Disorder N High Blood Pressure Y Clot in Lung or Pulmonary Embolism N Menopause N Lung Condition N Phlebitis or Venous Blood Clot N Migraines N Depression N Pacemaker N Anemia N Back Pain N Neurologic Disease N Sciatica N Heart Attack ([place]) N Diabetes N Anxiety Disorder N Urinary Tract Infections N Bleeding Disorder N Arthritis N Abuse of Alcohol or Drugs N Back injury N Ear Problems N Cancer N Dementia N Eye Problems N Stroke N Stomach Problems N Peripheral Vascular Disease N Sinus Conditions N Broken Bone N Thyroid Disorder N High Cholesterol N Hepatitis N Liver Disease N Heart Disease N Rheumatoid Arthritis N Rash N Osteoporosis N Kidney Disease N Past Encounters Encounter ID Performer Location Encounter Start Date Encounter Closed Date Diagnosis/Indication Diagnosis SNOMED-CT Code Diagnosis ICD10 Code Diagnosis IMO Codes Diagnosis Note [id number] [facility] [address] [place] [address] 08/22/2020 11:08:58 08/22/2020 11:34:05 Verruca plantaris 24303622 B07.0 2nd mtpj right x 1 Acquired h allux valgus 74676968 M20.11 M20.12 asymptomat ic Foot pain 99884526 M79.6 71 [id number] [facility] [address] [place] [address] 12/10/2021 10:13:45 12/10/2021 10:35:52 Verruca plantaris 00537281 B07.0 2nd mtpj right x 1 Acquired h allux valgus 86024333 M20.11 M20.12 asymptomat ic Foot pain 40676934 M79.6 71 [id number] [facility] [address] [place] [address] 01/08/2022 08:44:13 01/08/2022 09:09:16 Verruca plantaris 81777765 B07.0 sub 5th mtpj left foot x 1- new Acquired h allux valgus 80121544 M20.11 M20.12 asymptomat ic Foot pain 53780847 M79.6 72 [id number] Fernando Padgett , [facility] [address] [place] [address] 03/22/2022 11:21:05 03/22/2022 11:48:29 Onychomycosis 536864352 B35.1 possible onychomyco sis right hallux Dystrophia unguium 53158 009 L60.3 lamellar appearance of nail Onycholysis 91814727 L60 .1 Pain in toe 668737869 M7 9.674 [id number] Fernando Padgett , [facility] [address] [place] [address] 07/17/2022 09:21:21 07/17/2022 09:51:30 Onychomycosis 517375915 B35.1 onychomyco sis right hallux Dystrophia unguium 08732 009 L60.3 lamellar appearance of nail Plantar fasciitis 20280305 003 M72.2 mild noninserti onal left plantar arch- improving Acquired h allux valgus 51163543 M20.11 M20.12 asymptomat ic L>R Onycholysis 30424212 L60 .1 improving Pain in toe 493544712 M7 9.674 [id number] Fernando Padgett [facility] [address] [place] [address] 08/27/2022 15:17:50 08/27/2022 15:41:49 Verruca plantaris 28525715 B07.0 sub 5th mtcj left foot x 1- new Foot pain 24301480 M79.6 72 [id number] Fernando Padgett , [facility] [address] [place] [address] 10/16/2022 09:22:23 10/16/2022 09:39:10 Verruca plantaris 51592816 B07.0 sub 5th mtcj left foot x 1- RESOLVING Foot pain 66503960 M79.6 72 Onychomycosis 761416993 B35.1 onychomyco sis right hallux, RESOLVING Dystrophia unguium 59099 009 L60.3 lamellar appearance of nail Plantar fasciitis 20280305 003 M72.2 mild noninserti onal left plantar arch- improving Acquired h allux valgus 69199410 M20.11 M20.12 asymptomat ic L>R Onycholysis 65500338 L60 .1 improving, RESOLVING Pain in toe 015283957 M7 9.674 [id number] Fernando Padgett , [facility] [address] [place] [address] 03/18/2023 12:14:35 03/18/2023 12:32:31 Verruca plantaris 34696864 B07.0 sub 5th mtcj left foot, left 5th mtpj - recurrent Foot pain 29412895 M79.6 72 Onychomycosis 836077272 B35.1 onychomyco sis right hallux, RESOLVING Plantar fasciitis 887793 003 M72.2 mild noninserti onal left plantar arch- improving Acquired h allux valgus 43424177 M20.11 M20.12 asymptomat ic L>R Onycholysis 59796972 L60 .1 improving, RESOLVING Pain in toe 764872996 M7 9.674 [id number] Fernando Padgett , [facility] [address] [place] [address] 08/14/2023 10:16:24 08/14/2023 10:46:48 Verruca plantaris 85619505 B07.0 sub 5th mtcj left foot, left 5th mtpj - recurrent Foot pain 86222220 M79.6 72 Plantar fasciitis 223798 003 M72.2 mild noninserti onal left plantar arch- improving Acquired h allux valgus 27081438 M20.11 M20.12 asymptomat ic L>R Onycholysis 14238465 L60 .1 improving, RESOLVING Pain in toe 735383428 M7 9.674 [id number] Fernando Padgett , [facility] [address] [place] [address] 10/14/2023 09:15:31 10/14/2023 09:38:01 Verruca plantaris 05716328 B07.0 sub 5th mtcj left foot - recurrent Foot pain 89918068 M79.6 72 Plantar fasciitis 627568 003 M72.2 mild noninserti onal left plantar arch- improving Acquired h allux valgus 72300419 M20.11 M20.12 asymptomat ic L>R Onycholysis 04253787 L60 .1 improving, RESOLVING Pain in toe 588392959 M7 9.674 [id number] Fernando Padgett , [facility] [address] [place] [address] 02/24/2024 15:49:13 02/24/2024 16:09:12 Verruca plantaris 40462235 B07.0 2ND MTPJ LEFT FOOT X 1- NEW Foot pain 22644396 M79.6 72 Plantar fasciitis 605112 003 M72.2 mild noninserti onal left plantar arch- improving Acquired h allux valgus 79486960 M20.11 M20.12 asymptomat ic L>R Onycholysis 63513647 L60 .1 improving, RESOLVING Pain in toe 097086482 M7 9.674 [id number] Fernando Padgett , [facility] [address] [place] [address] 08/19/2024 15:36:15 08/19/2024 16:24:43 Verruca plantaris 70934230 B07.0 5th mtcj left foot- x 1 Foot pain 75781188 M79.6 72 Plantar fasciitis 305427 003 M72.2 mild noninserti onal left plantar arch- improving Acquired h allux valgus 72942692 M20.11 M20.12 asymptomat ic L>R Onycholysis 43715093 L60 .1 improving, RESOLVING Pain in toe 415293788 M7 9.674 [id number] Fernando Padgett , [facility] [address] [place] [address] 02/14/2025 09:02:34 02/14/2025 09:24:46 Verruca plantaris 65584754 B07.0 5th mtcj left foot- x 1 Foot pain 69950424 M79.6 72 Acquired h allux valgus 22208983 M20.11 M20.12 asymptomat ic L>R Onycholysis 87028971 L60 .1 RECURRENT RIGHT HALLUX Pain in toe 441531800 M7 9.674 Onychomycosis 522247234 B35.1 [id number] onychomyco sis right hallux, MILD RECURRENCE Health Concerns Section Related Observation LastModified by Organization Detai ls LastModified Time None Recorded Concern Status LastModified by Organization Details LastModified Time None Recorded Advance Directives Directive None Recorded Payers Insurance Date Sequence Insurance Name Policy Number Policy Bauer Covered Member ID Bauer Member ID Guarantor Name 02/08/2025 2 [employer] (MEDICARE SUPPLEMENT) Jose Navjot [id number] Jose Navjot 02/11/2025 1 [place] Jose H Navjot [id number] Jose Navjot 02/11/2025 2 [employer] (MEDICARE SUPPLEMENT) Jose Navjot [id number] Jose Navjot 02/08/2025 2 [employer] Jose Navjot [id number] Jose Navjot 08/21/2022 2 UNSPECIFIED REMIT PAYOR Jose Navjot 02/08/2025 2 [employer] (MEDICARE SUPPLEMENT) Jose Navjot [id number] Jose Navjot Notes Date Note Type Note Provider Name and Address Organization Details Recorded Time 08/14/19 24 text/htm l Wart--Reported by PatientHPIFor location, patient reportsfoot,left (under 5th toe and sub 5th mtcj),plantar, andlateral. For nature, patient reportsstabbing,sharp,impr oving, andno pain. For duration, patient reportsnot sure. For onset, patient reportsnoticed a small bump but has been getting smaller. For alleviating factors, patient reportsnot putting pressure on it. For aggravating factors, patient reportspressure,nothing, andwalking. For course, patient reportsgetting bigger,getting smaller, andthinks its gone. For treatment, patient reportsnone. For previous treatments, (nonehelped signficantly.). Foot Pain--Reported by PatientHPIFor associated symptoms, patient reportsachingbut reportsdenies weakness, limping, tingling, swelling, or color changes. For location, patient reportsleft midfoot at the arch. For quality, patient reportsdullandimproving. For severity, patient reportsmildandpain level 0-/10. For duration, patient reports3 months(he states he is getting better as he has been doing stretching exercises). For timing, patient reportsgetting out of bed in the morning. For context, patient reportscannot identify. For alleviating factors, patient reportsstretching. For aggravating factors, patient reportswalking. For previous surgery, patient reportsnone. For prior imaging, patient reportsnone. For previous treatments, patient reportshelped significantly. Nails--Reported by PatientHPIFor nature, patient reportsoccasional sharp or shooting pain. For location, patient reportstoenails right 1, __, __, __, __(very thick and discolored, loose). For severity, patient reportsmoderateandpain level 0-310. For duration, patient reportsa few months. For timing, patient reportsgradually worse as time goes on. For onset, patient reportsall shoes apply uncomfortable pressure. For alleviating factors, patient reportsrelief with treatmentandhas been using topical antifungal (tolnaftate 1%). For aggravating factors, patient reportscannot identify. For associated symptoms, patient reportstoo thick to cut with clippers at homeandafraid of causing an infection at home. For course, patient reportshas stayed the same. For previous treatment, patient reportsself trimming.Pt states he last saw Dr Trujillo 10/15/22. HE IS CURRENTLY WEARING SIZE 10.5 D FOOTWEAR BUT WAS MEASURED 11D PREVIOUSLY. Marvin Padgett, [address], [address], [facility] 08/14/2023 10:57:27 10/14/19 24 text/htm l Wart--Reported by PatientHPIFor location, patient reportsfoot,left (under 5th toe and sub 5th mtcj),plantar, andlateral. For nature, patient reportsstabbing,sharp,impr oving, andno pain. For duration, patient reportsnot sure. For onset, patient reportsnoticed a small bump but has been getting smaller. For alleviating factors, patient reportsnot putting pressure on it. For aggravating factors, patient reportspressure,nothing, andwalking. For course, patient reportsgetting bigger,getting smaller, andthinks its gone. For treatment, patient reportsnone. For previous treatments, (nonehelped signficantly.). Foot Pain--Reported by PatientHPIFor associated symptoms, patient reportsachingbut reportsdenies weakness, limping, tingling, swelling, or color changes. For location, patient reportsleft midfoot at the arch. For quality, patient reportsdullandimproving. For severity, patient reportsmildandpain level 0-1/10. For duration, patient reports3 months(he states he is getting better as he has been doing stretching exercises). For timing, patient reportsgetting out of bed in the morning. For context, patient reportscannot identify. For alleviating factors, patient reportsstretching. For aggravating factors, patient reportswalking. For previous surgery, patient reportsnone. For prior imaging, patient reportsnone. For previous treatments, patient reportshelped significantly. Marvin Padgett, [address], [address]23 09:39:05 02/24/20 24 text/htm l Wart--Reported by PatientHPIFor location, patient reportsfoot (2nd mtpj left). For nature, patient reportsstabbingandsharp. For duration, patient reports1 months. For onset, patient reportsnoticed a small bump but has been getting biggerandnoticed all of the sudden. For alleviating factors, patient reportsnot putting pressure on it. For aggravating factors, patient reportspressure,nothing, andwalking. For course, patient reportsgetting bigger. For treatment, patient reportsnone (in this area). Foot Pain--Reported by PatientHPIFor associated symptoms, patient reportsachingbut reportsdenies weakness, limping, tingling, swelling, or color changes. For location, patient reportsleft midfoot at the arch. For quality, patient reportsdullandimproving. For severity, patient reportsmildandpain level 0-1/10. For duration, patient reports3 months(he states he is getting better as he has been doing stretching exercises). For timing, patient reportsgetting out of bed in the morning. For context, patient reportscannot identify. For alleviating factors, patient reportsstretching. For aggravating factors, patient reportswalking. For previous surgery, patient reportsnone. For prior imaging, patient reportsnone. For previous treatments, patient reportshelped significantly. Marvin Padgett, OC [address] [place], [address], [employer] [facility] 02/24/2024 16:31:46 08/19/19 25 text/htm l Wart--Reported by PatientHPIFor location, patient reportsleft (sub 5th mtcj),plantar, andlateral. For nature, patient reportsstabbing,sharp,impr oving, andno pain. For duration, patient reportsnot sureand1 months. For onset, patient reportsnoticed a small bump but has been getting smallerandnoticed all of the sudden. For alleviating factors, patient reportsnot putting pressure on it. For aggravating factors, patient reportspressure,nothing, andwalking. For course, patient reportsgetting bigger,getting smaller, andthinks its gone. For treatment, patient reportsnone (in this area). For previous treatments, (nonehelped signficantly.). Foot Pain--Reported by PatientHPIFor associated symptoms, patient reportsachingbut reportsdenies weakness, limping, tingling, swelling, or color changes. For location, patient reportsleft midfoot at the arch. For quality, patient reportsdullandimproving. For severity, patient reportsmildandpain level 0-1/10. For duration, patient reports3 months(he states he is getting better as he has been doing stretching exercises). For timing, patient reportsgetting out of bed in the morning. For context, patient reportscannot identify. For alleviating factors, patient reportsstretching. For aggravating factors, patient reportswalking. For previous surgery, patient reportsnone. For prior imaging, patient reportsnone. For previous treatments, patient reportshelped significantly. Marvin Padgett, OC [address] [place], [address], [facility] [employer] [facility] 08/19/2024 16:19:01 07/14/20 25 text/htm l Nails--Reported by PatientHPIFor nature, patient reportsoccasional sharp or shooting pain. For course, patient reportsgetting worse. For location, patient reportstoenails right 1, __, __, __, __ (nail is loose distally , discolored yellow/brown distally.). For severity, patient reportsmild. For duration, patient reportsa few months. For timing, patient reportsgradually worse as time goes on. For onset, patient reportsall shoes apply uncomfortable pressure. For alleviating factors, patient reportsrelief with treatment. For aggravating factors, patient reportscannot identify. For associated symptoms, patient reportstoo thick to cut with clippers at home. For previous treatment, patient reportsself trimming.Pt states he last saw Dr Trujillo 09/17/24 Patient also has a painful skin lesion [place] [address] [place] [address], [id number], [place] [facility] 02/14/2025 09:28:04
--- OUTSIDE RECORDS SUMMARY | 2025-07-13 04:20 | XMS_ITS | Clinical Summary ---
Author Organization [facility] Address [address] [place] [address] Care Team Providers Care Human Resources Compensation Analyst Name Role Phone Unavailable Primary Care Provider Unavailabl e Source Comments [facility],non-owned Affiliates and Associated Physician Practices is amultiple site organization consisting of ambulatory clinics and hospital sitesin [place], [place], [place] and [place]. This disclosure is being madepursuant to the Care Everywhere program and may not contain all information available regarding this patient. Last updated 18.[facility] Allergies Active Allergy Reactions Criticality Noted Date Comments Penicillins 08/30/2017 Immunizations Immunization Administration Dates Next Due INFLUENZA VACCINE, HIGH-DOSE , QUADR. (FLUZONE HIGH-DOSE QUADRIVALENT; 65Y+), 0.7 ML (HD-IIV4) 08/30/2017 Social History Tobacco Use Types Packs/Day Years Used Date Smoking Tobacco: Never Assessed Sex and Gender Information Value Date Recorded Sex Assigned at Not on file Legal Sex Male 7:23 AM CDT Gender Identity Not on file Sexual Orientation Not on file Plan of Treatment Health Maintenance Due Date Last Done Comments COLOGUARD (AGES 45-75) - COL ON CA SCREENING 1950 COLON MONITORING 1950 COLONOSCOPY - COLON CA SCREENING 1951 CT COLONOGRAPHY - COLON CA SCREENING 1950 Colorectal Cancer Screening 1950 FIT - COLON CA SCREENING 1950 FLEX SIG - COLON CA SCREENING 1950 LIPID TESTING 1950 HEPATITIS C SCREENING 02/27/1969 DTAP/TDAP/TD VACCINES (1 - Tdap) 1970 PNEUMOCOCCAL VACCINE 50+ (1 of 1 - PCV) 2001 ZOSTER VACCINE (1 of 2) 2001 DEPRESSION SCREENING 08/04/2024 COVID-19 VACCINE (1 - 2024-2 6 season) 2025 INFLUENZA VACCINE (#1) 2025 08/30/2017 Respiratory Syncytial Virus (RSV) Vaccine Pt: or over 60 yrs (1 - 1-dose 75+ series) 2026 HEPATITIS B VACCINE Aged Out No longe r eligible based on patient's age to complete this topic HIB VACCINE Aged Out No longer eligi ble based on patient's age to complete this topic HPV VACCINE Aged Out No longer eligi ble based on patient's age to complete this topic MENINGOCOCCAL (Group B) VACC INE SHARED DECISION-MAKING Aged Out No longer eligibl e based on patient's age to complete this topic MENINGOCOCCAL GROUPS A/C/Y/W VACCINE Aged Out No longer eligible b ased on patient's age to complete this topic Insurance MEDICARE [facility] MEDICARE MEDICARE MEDICARE
--- OUTSIDE RECORDS SUMMARY | 2025-07-13 04:20 | XMS_ITS | Patient Health Record ---
Author Organization [facility] Address [address] [place] [address] Care Team Providers Care Grease Rack Worker Name Role Phone NO, PCP Primary Care Provider João Funez Unavailable [phone] ALLERGIES Allergen (clinical drug ingredient) Drug/Non Drug Allergy documented on EMR Reaction Allergy Type Onset Date Status penicillin Unknown Drug Allergy Active REASON FOR REFERRAL No Information MEDICATIONS Medication SIG (Take, Route, Fr equency, Duration) Notes Start Date End Date Status Aspir-Low 81 mg 1 tab(s) orally once a day for 30 day(s) Active traZODone 50 mg 1 tab(s) orally 2 ti mes a day for 30 day(s) Active metoprolol 50 mg 1 tab(s) orally once a day for 30 day(s) Active propranolol 60 mg 1 cap(s) orally once a day for 30 day(s) Active IMMUNIZATIONS Vaccine Route Administration Date Status Comme nts Pneumococcal Unknown 11/22/2018 Administered verified 4 .21.21 stacy vides Pneumococcal Unknown 09/28/2019 Administered Influenza Unknown 09/10/2021 Refused verified 2.7.2 022 DNA SOCIAL HISTORY Tobacco Use: Social History Observation Description Date Details (start date - stop date) Never Smoker NA - NA Sex Assigned At : Social History Observation Description Sex Assigned At Unknown Alcohol Question Answer Notes Did you have a drink containing alcohol in the p ast year? 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) Active confirmed Basal cell carcinoma of ear (616245414) PLAN OF TREATMENT No Information Insurance Providers Payer Name Payer Address Payer Phone Subscriber Number Group Number Insured Name Patient Relationship to Insured Coverage Start Date Coverage End Date MEDICARE [address] [place] [address] [id number] Jose Morfin Self - patient is the insured MEDICAL (GENERAL) HISTORY Medical History History ICD Code HTN DEPRESSION History of UV or X-Ray Treatments No History of arsenic exposure No History of immunosuppression No Organ Transplant recipient No History of BCC Yes History of SCC No History of melanoma No family History of Melanoma No Family History of Basal cell carcinoma N o Family History of squamous cell carcinom a No Surgical History Surgery Date(Month/Year) BCC removed from L ear by outside physic desirae in [facility] 9.2.21
--- OUTSIDE RECORDS SUMMARY | 2025-07-13 04:20 | XMS_ITS | Patient Health Record ---
Author Organization [facility] Address [address] [place], [place] [address] Care Team Providers Care Community Support Worker Name Role Phone Nick Correa DO Unavailable [phone] Gume Trujillo Unavailable Unavailable Allergies No Known Allergies Reason For Referral No Information Medications Medication SIG (Take, Route, Frequency, Duration) Notes Start Date End Date Status Propranolol HCl 10 MG Oral; Duration: 90 Days Active methylPREDNISolone 4 MG Oral; Duration: 6 Days Active traZODone HCl 50 MG Oral; Duration: 90 Days Active Lisinopril 5 MG Oral; Duration: 90 Days Active Metoprolol Tartrate 50 MG Oral; Duration: 90 Days Active Vital Signs Heart Rate 64 /min 04/20/2025 Temperature 98.6 degrees Fahrenheit 04/20/2025 Height-cm 187.96 cm 04/20/2025 Blood pressure diastolic 81 mm Hg 04/20/2025 Oximetry 98 % 04/20/2025 Weight-kg 77.2 kg 04/20/2025 Height 74 in 04/20/2025 Blood pressure systolic 132 mm Hg 04/20/2025 Weight 170.2 lbs 04/20/2025 BMI 21.85 kg/m2 04/20/2025 Encounters Encounter Location Date Provider Diagnosis [facility] [address] [place], [place] [id number] 04/20/2025 Nick Correa [facility] [address] [place], [place] [phone] 07/11/2025 Nick Correa Plan Of Treatment Next Appt Details Provider Name:Nick chin, 07/20/2025 09:00:00 AM, [address], [place], [place], [phone], Insurance Providers Payer Name Payer Address Payer Phone Subscriber Number Group Number Insured Name Patient Relationship to Insured Coverage Start Date Coverage End Date [place] [address] [address] [place] [address] [id number] Jose Morfin Self - patient is the insured [employer] Medicare Supplement [address] [place] [address] [id number] Jose Morfin Self - patient is the insured Medical (General) History Medical History History ICD Code Hypertension Surgical History Surgery Date(Month/Year) 07/19/2019 Cataract Surgery
--- OUTSIDE RECORDS SUMMARY | 2025-07-13 04:21 | XMS_ITS | Clinical Summary ---
Author Organization [facility] Address [address] [address] Care Team Providers Care Forklift Wheel Loader Name Role Phone Gume Trujillo MD Primary Care Provider [phone] Sebastian Chaves MD Unavailable [phone] Allergies Active Allergy Reactions Criticality Noted Date Comments Penicillins Unknown 08/30/2017 Medications metoprolol (LOPRESSOR) 50 mg tablet 0 Active propranoloL (INDERAL) 10 mg tablet 9 Active traZODone (DESYREL) 50 mg tablet 0 Active sodium, potassium & mag sulfates (SUPREP BOWEL KIT) 17.5-3.13-1.6 gram recon solnIndications :Bowel Evacuation Take the first dose at 6:00pm the evening prior to your Colonoscopy, then take the second dose 6 hours prior to your arrival time. 354 mL 0 Active Additional Information Patient not taking.Reported on 05/13/2022 aspirin 325 mg enteric coated tablet Take 325 mg by mouth daily Active Active Problems Problem Noted Date Diagnosed Date Trigger finger, right ring finger 05/28/2022 Screen for colon cancer 10/05/2019 Overview (10/05/2019): Added automatically from request for surgery [id number] Encounters Date Type Department Care Team Description 06/13/2025 Orders Only Nephrology Levar Estrada MD Chronic kidney disease, stage I (Primary Dx) 04/26/2025 9:20 AM CDT Lab [facility] [address] [place] [address] Chronic kidney disease (CKD) stage G3a/A1, moderately decreased glomerular filtration rate (GFR) between 45-59 mL/min/1.73 square meter and albuminuria creatinine ratio less than 30 mg/g (HCC) from Last 3 Months Social History Tobacco Use Types Packs/Day Years Used Date Smoking Tobacco: Never Smokeless Tobacco: Never Sex and Gender Information Value Date Recorded Sex Assigned at Not on file Legal Sex Male 10:57 AM CHEMICAL MAKER Gender Identity Not on file Sexual Orientation Not on file Last Filed Vital Signs Vital Sign Reading Time Taken Comments Blood Pressure - - Pulse - - Temperature - - Respiratory Rate - - Oxygen Saturation - - Inhaled Oxygen Concentration - - Weight 78 kg (172 lb) 06/11/2022 9:46 AM CHEMICAL MAKER Height 188 cm (6' 2) 06/11/2022 9:46 AM CHEMICAL MAKER Body Mass Index 22.08 06/11/2022 9:46 AM CHEMICAL MAKER Plan of Treatment Health Maintenance Due Date Last Done Comments Colon Cancer Screening-Colonoscopy 1951 Depression Screening 1950 Fall Risk Assessment 1950 Hepatitis C Screening 1951 Hepatitis B Screening 1969 Zoster Vaccine (1 of 2) 2001 Abdominal Aortic Aneurysm (A AA) Screen 2016 Well Visit 65+ 2016 Covid-19 Vaccine (3 - 2024-2 6 season) 2025 07/22/2021, 10/12/2020 Influenza Vaccine (#1) 2025 , 05/23/2023, 09/10/2021, Additional history exists DTaP/Tdap/Td Vaccine (2 - Td or Tdap) 04/04/2030 04/04/2020 Pneumococcal vaccine 65+ Completed 020, 11/22/2018, 04/30/2018 Prostate Cancer Screening-PSA Discontinued , 09/29/2023, 03/27/2023, Additional history exists Procedures Procedure Name Priority Date/Time Associated Diagnosis Comments EGFR Routine 04/26/2025 9:25 AM CDT Chronic kidney disease (CKD) stage G3a/A1, moderately decreased glomerular filtration rate (GFR) between 45-59 mL/min/1.73 square meter and albuminuria creatinine ratio less than 30 mg/g (HCC) RENAL FUNCTION PANEL Routine 04/26/2025 9:25 AM CDT Chronic kidney disease (CKD) stage G3a/A1, moderately decreased glomerular filtration rate (GFR) between 45-59 mL/min/1.73 square meter and albuminuria creatinine ratio less than 30 mg/g (HCC) PSA SCREEN Routine 10/01/2024 8:37 AM CHEMICAL MAKER from Last 3 Months or Most Recently Relevant to Health Maintenance Results * eGFR (04/26/2025 9:25 AM CDT) eGFR 61 >=60 mL/min/1. 73 m2 Comment: Interpretive Data Reference Interval Normal >/= 90 mL/min/1.73m2 Mildly decreased* 60 - 89 mL/min/1.73m2 Mildly to moderately decreased 45 - 59 mL/min/1.73m2 Moderately to severely decreased 30 - 44 mL/min/1.73m2 Severely decreased 15 - 29 mL/min/1.73m2 Kidney Failure < 15 mL/min/1.73m2 *Relative to young adult level Estimated glomerular filtration rate is determined by the 2020 CKD-EPI equation recommended by the National Kidney Foundation (A Unifying Approach to GFR Estimation: Recommendations of the NKF-ASK Task Force on Reassessing the Inclusion of Race in Diagnosing Kidney Disease, JASN 202). The CKD-EPI equation should not be used for patients with unstable renal function and has not been validated in children and those over 70. Current interpretive data was last reviewed 2021. Blood 04/26/2025 9:25 AM CDT 04/26/2025 12:35 PM CDT us Levar Estrada MD LAB BLOOD ORDERABLES Final Resu lt [facility] [address] [place] [address] * (ABNORMAL) Renal function panel (04/26/2025 9:25 AM CDT) Sodium 143 135 - 145 mmol/L Potassium, pl 5.0(H) 3.3 - 4.9 mmol/L [facility] Chloride 107 97 - 110 mmol/L [facility] CO2 27 22 - 32 mmol/L [facility] Anion gap 9 2 - 15 mmol/L [facility] BUN 29(H) 6 - 25 mg/dL [facility] Creatinine 1.24 0.80 - 1.30 mg/dL [facility] Glucose 80 70 - 199 mg/dL [facility] Comment: Interpretive Data Fasting glucose >/= 126 mg/dl is diagnostic for diabetes. Fasting is defined as no caloric intake for at least 8 hours. Fasting glucose between 100 mg/dl to 125 mg/dl is diagnostic of prediabetes. In a patient with classic symptoms of hyperglycemia or hyperglycemic crisis, a random glucose >/= 200 mg/dl is diagnostic for diabetes. In the absence of unequivocal hyperglycemia, results should be confirmed by repeat testing. The classification and Diagnosis of Diabetes Diabetes Care 202; 46: S19-S40. Current interpretive data was last revised 2022. Calcium 9.2 8.5 - 10.3 mg/dL [facility] Phosphorus, pl 2.8 2.3 - 4.5 mg/dL [facility] Albumin 3.9 3.5 - 5.0 g/dL [facility] Blood 04/26/2025 9:25 AM CDT 04/26/2025 12:35 PM CDT us Levar Estrada MD LAB BLOOD ORDERABLES Final Resu lt [facility] [address] Department [place] [address] * PSA screen (10/01/2024 8:37 AM CHEMICAL MAKER) PSA-Total 0.65 <=6.20 ng/mL Comment: Interpretive Data AGE SEX REFERENCE INTERVAL 0 minutes-150 years Female None 0 minutes-49 years Male None 50-59 years Male 0-3.90 60-69 years Male 0-5.40 70-79 years Male 0-6.20 80-150 years Male 0-6.20 The [employer] PSA Total assay procedure was used. Results from different manufacturers or methods may not be comparable. Serial testing should be performed using the same method. Current interpretive data last revised 21. Blood 10/01/2024 8:37 AM CHEMICAL MAKER 10/01/2024 3:53 PM CHEMICAL MAKER us Gume Trujillo MD LAB BLOOD ORDERABLES Final Res ult [facility] [address] [place] [address] from Last 3 Months or Most Recently Relevant to Health Maintenance [place] [address] [facility] [address] [id number] MEDICARE [facility] [place] [id number] MEDICARE [employer] S[employer]IOR [employer] [place] [id number] Care Teams Forklift Wheel Loader Relationship Specialty Start Date End Date Gume Trujillo MD [address] [facility] [address] [place] [address] PCP - General Internal Medicine 09/24/19 Sebastian Chaves MD [address] [place] [address] Surgeon Orthopedic Surgery 05/31/21
--- OUTSIDE RECORDS SUMMARY | 2025-07-13 04:21 | XMS_ITS | Patient Health Record ---
Author Organization [facility] Address [address] [place] [address] Care Team Providers Care Hog Sawyer Name Role Phone Ronnie AUSTIN, Gume Primary Care Provider AARON Márquez Unavailable [phone] Allergies Allergen (clinical drug ingredient) Drug/Non Drug Allergy documented on EMR Reaction Allergy Type Onset Date Status PCN (uncoded) Unknown Allergy Active Reason For Referral No Information Medications Medication SIG (Take, Route, Frequency, Duration) Notes Start Date End Date Status Metoprolol Tartrate 50 MG 1 tablet with food Orally Twice a day; Duration: 30 day(s) 01/27/2020 Active Social History Tobacco Use: Social History Observation Description Date Details (start date - stop date) Never Smoker NA - NA Tobacco Use/Smoking Question Answer Notes Are you a nonsmoker Problems Problem Type SNOMED Code ICD Code Onset Dates Problem Status W/U Status Risk Notes Problem Low back pain (246502873) Low back pain (M54.5) Active confirmed Problem Sacroiliitis (57724292) Sacroiliitis (M46.1) Active confirmed 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) Piriformis syndrome of right side (G57.01) Active confirmed Problem Lumbar radiculopathy (028434839) Lumbar radiculopathy (M54.16) Active confirmed Problem Muscle pain (06526660) Myofascial pain on right side (M79.18) Active confirmed Plan Of Treatment Pending Test Test Name Order Date MRI : Lumbar without contrast 02/24/2020 x ray : lumbar, flexion and extension Insurance Providers Payer Name Payer Address Payer Phone Subscriber Number Group Number Insured Name Patient Relationship to Insured Coverage Start Date Coverage End Date MEDICARE [place] [address] [address] [place] [address] [id number] SHAY WHITING Self - patient is the insured [place] [facility] [facility] [place] [id number] JOHANNE SHAY Self - patient is the insured Medical (General) History Medical History History ICD Code SLEEP APNEA Surgical History Surgery Date(Month/Year)
--- OUTSIDE RECORDS SUMMARY | 2025-07-13 04:21 | XMS_ITS | Patient Health Record ---
Author Organization [facility] Address [address] [place] [address] Care Team Providers Care Media Relations Specialist Name Role Phone Gume Trujillo Primary Care Provider Gume Trujillo MD Unavailable Unavailable Allergies Allergen (clinical drug ingredient) Drug/Non Drug Allergy documented on EMR Reaction Allergy Type Onset Date Status Substance with penicillin structure and antibacterial mechanism of action (substance) Penicillins Unknown Drug Allergy 02/02/2015 Active Results Component Value Reference Range Notes CBC w auto diff (Not yet rev iewed by provider) Interpretation: Performing Lab:[facility] , [address] [address] Notes/Report: WBC 4.7 3.8-9.9 K/cumm Hgb 14.3 13.0-17.5 g/dL Hct 44.5 38.9-50.3 % Platelet Ct 178 150-400 K/cumm MPV 12.0 9.1-12.3 fL RBC 4.28 4.30-5.80 M/cumm MCV 104.0 81.3-96.4 fL MCH 33.4 27.1-33.3 pg MCHC 32.1 32.3-35.7 g/dL RDW CV 12.9 11.1-14.9 % RDW SD 49.1 35.7-48.1 fL NRBC Abs Auto 0.00 0.00-0.01 K/cumm Comprehensive metabolic pane l (CMP) (Not yet reviewed by provider) Interpretation: Performing Lab:[facility] , [address] [facility] [facility] [address] Notes/Report: Sodium 142 135-145 mmol/L Plasma Potassium 4.9 3.3-4.9 mmol/L Chloride 108 97-110 mmol/L Total CO2 25 22-32 mmol/L Anion Gap 9 2-15 mmol/L BUN 30 6-25 mg/dL Creatinine 1.39 0.80-1.30 mg/dL Glucose 94 70-199 mg/dL Interpretive Data Fasting glucose >/= 126 mg/dl [...] classification and Diagnosis of Diabetes Diabetes Care 2021; 46: S19-S40. Current interpretive data was last revised 2022. Total Calcium 9.2 8.5-10.3 mg/dL Total Bilirubin 0.4 0.1-1.2 mg/dL Plasma Total Protein 6.9 6.5-8.5 g/dL Albumin 4.1 3.5-5.0 g/dL Alkaline Phosphatase 67 40-130 Units/L ALT 25 7-55 Units/L AST 37 10-50 Units/L Hemoglobin A1C (Not yet revi ewed by provider) Interpretation: Performing Lab:[facility] , [address] [facility]. [facility] [address] Notes/Report: Hemoglobin A1C 5.1 4.0-5.6 % Est Average Glucose 100 The ADA recommends reporting an estimated Average Glucose (eAG) with all Hemoglobin A1c results using the equation derived from a study of 507 normal and diabetic adults. Minority populations were underrepresented and children were not included. (Diabetes Care 31:9307-2738, 2008). The eAG is not equivalent to a fasting glucose. Lipid Panel (Not yet reviewe d by provider) Interpretation: Performing Lab:[facility] , [address] [facility]. [facility] [address] Notes/Report: Cholesterol 135 30-199 mg/dL Interpretive Data Ages < or = 19 years Acceptable: <170 mg/dL Borderline high: 170-199 mg/dL High: >or= 200 mg/dL Ages > or = 20 years Desirable: <200 mg/dL Borderline high: 200-239 mg/dL High: >or= 240 mg/dL Literature References: 1. Expert Panel on Integrated Guidelines for Cardiovascular Health and Risk Reduction in Children and Adolescents. Pediatrics 2011;128:S213 2. NCEP Expert Panel. Circulation 2004;110:227 Current Interpretive Data was last revised on 2018. Triglycerides 44 <=149 mg/dL Interpretive Data Ages < or = 9 years Acceptable: <75 mg/dL Borderline high: 75-99 mg/dL High: >or= 100 mg/dL Ages 10 to 20 years Acceptable: <90 mg/dL Borderline high: 90-129 mg/dL High: >or= 130 mg/dL Ages > or = 20 years Desirable: <150 mg/dL Borderline high: 150-199 mg/dL High: 200-499 mg/dL Very high: >or= 499 mg/dL Literature References: 1. Expert Panel on Integrated Guidelines for Cardiovascular Health and Risk Reduction in Children and Adolescents. Pediatrics 2011;128:S213 2. NCEP Expert Panel. Circulation 2004;110:227 Current Interpretive Data was last revised on 2018. HDL Cholesterol 48 >=40 mg/dL Interpretive Data Ages < or = 19 years Acceptable: >45 mg/dL Borderline low: 40-45 mg/dL Low: <40 mg/dL Ages > or = 20 years Desirable: >or= 60 mg/dL Low: <40 mg/dL Literature References: 1. Expert Panel on Integrated Guidelines for Cardiovascular Health and Risk Reduction in Children and Adolescents. Pediatrics 2011;128:S213 2. NCEP Expert Panel. Circulation 2003;110:227 Current Interpretive Data was last revised on 2018. LDL Cholesterol, calculated 77 <=129 mg/dL Interpretive Data Ages < or = 19 years Acceptable: <110 mg/dL Borderline high: 110-129 mg/dL High: >or= 130 mg/dL Ages > or = 20 years Optimal: <100 mg/dL Near optimal: 100-129 mg/dL Borderline high: 130-159 mg/dL High: >160 mg/dL Calculated using the Ba LDL-C estimating equation. This equation was implemented on 2024. Prior to this date LDL-C was estimated using the Friedewald equation. Literature References: 1. Expert Panel on Integrated Guidelines for Cardiovascular Health and Risk Reduction in Children and Adolescents. Pediatrics 2011;128:S213 2. NCEP Expert Panel. Circulation 2004;110:227 3. Mejia Mcclain et al. MITCHEL Cardiol. 2020 December 02;5(5):540-548. doi: [email or web address] Current Interpretive Data was last revised on 2024. Non-HDL Cholesterol 87 Interpretive Data Ages < or = 19 years Acceptable: <120 mg/dL Borderline high: 120-144 mg/dL High: >145 mg/dL Ages > or = 20 years When triglycerides are >200 mg/dL, Non-HDL cholesterol is a secondary target of therapy with treatment goals that are 30 mg/dL greater than the LDL cholesterol target. Literature References: 1. Expert Panel on Integrated Guidelines for Cardiovascular Health and Risk Reduction in Children and Adolescents. Pediatrics 2011;128:S213 2. NCEP Expert Panel. Circulation 2004;110:227 Current Interpretive Data was last revised on 2018. Cholesterol/HDL ratio 3 PSA, Screen (Not yet reviewe d by provider) Interpretation: Performing Lab:[facility] , [address] [facility]. [place] [address] Notes/Report: PSA-Total 0.65 <=6.20 ng/mL Interpretive Data AGE SEX REFERENCE INTERVAL 0 [...] method. Current interpretive data last revised 21. TSH Reflex FT4 (Not yet revi ewed by provider) Interpretation: Performing Lab:[facility] , [address] [facility] [place] [address] Notes/Report: TSH (Hayes) 0.66 0.30-4.20 mcIUnit/mL UA, reflex Micro to Culture (Not yet reviewed by provider) Interpretation: Performing Lab:[facility] , [address] [facility] [facility] [address] Notes/Report: Color, Ur Yellow Yellow Clarity, Ur Clear Clear Spec Grav, Ur 1.033 1.003-1.03 pH, Ur 5.5 Interpretive Data ?Urine pH is affected by diet, medications, systemic acid-base disturbances, and renal tubular function. pH may affect urinary stone formation. For example, urine pH below 6.0 may help reduce the tendency for calcium phosphate stones and pH greater than 6.0 may reduce the tendency for uric acid stone formation. Source: [employer] Current Interpretive Data was last revised on 2017 Protein, Ur Ql Trace Negative Glucose, Ur Ql Negative Negative Ketones, Ur Negative Negative Bilirubin, Ur Negative Negative Blood, Ur Negative Negative Urobilinogen, Ur <2.0 <2.0 mg/dL Nitrite, Ur Negative Negative Leukocyte Esterase, Ur Negative Negative UA reflex comment See Below Reflex con ditions for microscopic UA and culture not met. CBC w auto diff (Not yet rev iewed by provider) Interpretation: Performing Lab:[facility] , [address] [place] [address]. [facility] [address] Notes/Report: WBC 5.42 3.80-9.90 K/cumm Hgb 13.9 13.0-17.5 g/dL Hct 42.6 38.9-50.3 % Platelet Ct 199 150-400 K/cumm MPV 11.8 9.1-12.3 fL RBC 4.09 4.30-5.80 M/cumm MCV 104.2 81.3-96.4 fL MCH 34.0 27.1-33.3 pg MCHC 32.6 32.3-35.7 g/dL RDW CV 12.9 11.1-14.9 % RDW SD 49.5 35.7-48.1 fL NRBC Abs Auto 0.00 0.00-0.01 K/cumm Comprehensive metabolic pane l (CMP) (Not yet reviewed by provider) Interpretation: Performing Lab:[facility] , [facility] [facility]. [facility] [address] Notes/Report: Sodium 141 135-145 mmol/L Plasma Potassium 5.1 3.3-4.9 mmol/L Chloride 106 97-110 mmol/L Total CO2 23 22-32 mmol/L Anion Gap 12 2-15 mmol/L BUN 37 6-25 mg/dL Creatinine 1.46 0.80-1.30 mg/dL Glucose 92 70-199 mg/dL Interpretive Data Fasting glucose >/= 126 mg/dl [...] Current interpretive data was last revised 2022. Total Calcium 9.6 8.5-10.3 mg/dL Total Bilirubin 0.3 0.1-1.2 mg/dL Plasma Total Protein 6.8 6.5-8.5 g/dL Albumin 4.1 3.5-5.0 g/dL Alkaline Phosphatase 73 40-130 Units/L ALT 21 7-55 Units/L AST 29 10-50 Units/L Lipid Panel (Not yet reviewe d by provider) Interpretation: Performing Lab:[facility] , [address] [place] [address]. [facility] [address] Notes/Report: Cholesterol 147 30-199 mg/dL Interpretive Data Ages < or = 19 years Acceptable: <170 mg/dL Borderline high: 170-199 mg/dL High: >or= 200 mg/dL Ages > or = 20 years Desirable: <200 mg/dL Borderline high: 200-239 mg/dL High: >or= 240 mg/dL Literature References: 1. Expert Panel on Integrated Guidelines for Cardiovascular Health and Risk Reduction in Children and Adolescents. Pediatrics 2011;128:S213 2. NCEP Expert Panel. Circulation 2004;110:227 Current Interpretive Data was last revised on 2018. Triglycerides 85 <=149 mg/dL Interpretive Data Ages < or = 9 years Acceptable: <75 mg/dL Borderline high: 75-99 mg/dL High: >or= 100 mg/dL Ages 10 to 20 years Acceptable: <90 mg/dL Borderline high: 90-129 mg/dL High: >or= 130 mg/dL Ages > or = 20 years Desirable: <150 mg/dL Borderline high: 150-199 mg/dL High: 200-499 mg/dL Very high: >or= 499 mg/dL Literature References: 1. Expert Panel on Integrated Guidelines for Cardiovascular Health and Risk Reduction in Children and Adolescents. Pediatrics 2011;128:S213 2. NCEP Expert Panel. Circulation 2004;110:227 Current Interpretive Data was last revised on 2018. HDL Cholesterol 49 >=40 mg/dL Interpretive Data Ages < or = 19 years Acceptable: >45 mg/dL Borderline low: 40-45 mg/dL Low: <40 mg/dL Ages > or = 20 years Desirable: >or= 60 mg/dL Low: <40 mg/dL Literature References: 1. Expert Panel on Integrated Guidelines for Cardiovascular Health and Risk Reduction in Children and Adolescents. Pediatrics 2011;128:S213 2. NCEP Expert Panel. Circulation 2004;110:227 Current Interpretive Data was last revised on 2018. LDL Cholesterol, calculated 82 <=129 mg/dL Interpretive Data Ages < or = 19 years Acceptable: <110 mg/dL Borderline high: 110-129 mg/dL High: >or= 130 mg/dL Ages > or = 20 years Optimal: <100 mg/dL Near optimal: 100-129 mg/dL Borderline high: 130-159 mg/dL High: >160 mg/dL Calculated using the Mejia LDL-C estimating equation. This equation was implemented on 2024. Prior to this date LDL-C was estimated using the Friedewald equation. Literature References: 1. Expert Panel on Integrated Guidelines for Cardiovascular Health and Risk Reduction in Children and Adolescents. Pediatrics 2011;128:S213 2. NCEP Expert Panel. Circulation 2004;110:227 3. Mejia Asher al. MITCHEL Cardiol. 2019December 02;5(5):540-548. doi: [email or web address] Current Interpretive Data was last revised on 2024. Non-HDL Cholesterol 98 Interpretive Data Ages < or = 19 years Acceptable: <120 mg/dL Borderline high: 120-144 mg/dL High: >145 mg/dL Ages > or = 20 years When triglycerides are >200 mg/dL, Non-HDL cholesterol is a secondary target of therapy with treatment goals that are 30 mg/dL greater than the LDL cholesterol target. Literature References: 1. Expert Panel on Integrated Guidelines for Cardiovascular Health and Risk Reduction in Children and Adolescents. Pediatrics 2011;128:S213 2. NCEP Expert Panel. Circulation 2004;110:227 Current Interpretive Data was last revised on 2018. Cholesterol/HDL ratio 3 TSH Reflex FT4 (Not yet revi ewed by provider) Interpretation: Performing Lab:[facility] , [address] [facility] [place] [address] Notes/Report: TSH (Hayes) 0.81 0.30-4.20 mcIUnit/mL UA, reflex Micro to Culture (Not yet reviewed by provider) Interpretation: Performing Lab:[facility] , [address] [facility] [place] [address] Notes/Report: Color, Ur Yellow Yellow Clarity, Ur Clear Clear Spec Grav, Ur 1.036 1.003-1.03 pH, Ur 5.5 Interpretive Data ?Urine pH is affected by diet, medications, systemic acid-base disturbances, and renal tubular function. pH may affect urinary stone formation. For example, urine pH below 6.0 may help reduce the tendency for calcium phosphate stones and pH greater than 6.0 may reduce the tendency for uric acid stone formation. Source: [employer] Current Interpretive Data was last revised on 2017 Protein, Ur Ql Trace Negative Glucose, Ur Ql Negative Negative Ketones, Ur Negative Negative Bilirubin, Ur Negative Negative Blood, Ur Negative Negative Urobilinogen, Ur <2.0 <2.0 mg/dL Nitrite, Ur Negative Negative Leukocyte Esterase, Ur Negative Negative UA reflex comment See Below Reflex con ditions for microscopic UA and culture not met. Differential Automated (Not yet reviewed by provider) Interpretation: Performing Lab:[facility] , [address] [facility] [place] [address] Notes/Report: Neut Abs 2.7 1.5-6.5 K/cumm ImmGran Abs 0.0 0.0-0.1 K/cumm Lymphocyte Abs 1.0 0.8-3.3 K/cumm Cotton Abs 0.8 0.2-0.8 K/cumm Eos Abs 0.1 0.0-0.5 K/cumm Baso Abs 0.1 0.0-0.1 K/cumm Neut Pct 58.3 Interpretive Data Percent cell count reference ranges are not reported, since discordance with absolute values may lead to misinterpretation of CBC data. Current Interpretive Data was last revised on 2017. ImmGran Pct 0.4 Interpretive Data Percent cell count reference ranges are not reported, since discordance with absolute values may lead to misinterpretation of CBC data. Current Interpretive Data was last revised on 2017. Lymph Pct 20.7 Interpretive Data Percent cell count reference ranges are not reported, since discordance with absolute values may lead to misinterpretation of CBC data. Current Interpretive Data was last revised on 2017. Cotton Pct 16.9 Interpretive Data Percent cell count reference ranges are not reported, since discordance with absolute values may lead to misinterpretation of CBC data. Current Interpretive Data was last revised on 2017. Eos Pct 2.4 Interpretive Data Percent cell count reference ranges are not reported, since discordance with absolute values may lead to misinterpretation of CBC data. Current Interpretive Data was last revised on 2017. Baso Pct 1.3 Interpretive Data Percent cell count reference ranges are not reported, since discordance with absolute values may lead to misinterpretation of CBC data. Current Interpretive Data was last revised on 2017. eGFR (Not yet reviewed by alan barker) Interpretation: Performing Lab:[facility] , [facility] [facility] [address] Notes/Report: eGFR 54 >=60 mL/min/1.73 m2 Interpretive Data Reference Interval Normal >/= 90 [...] of Race in Diagnosing Kidney Disease, JASN 2020). The CKD-EPI equation should not be used for patients with unstable renal function and has not been validated in children and those over 70. Current interpretive data was last reviewed 2021. Differential Automated (Not yet reviewed by provider) Interpretation: Performing Lab:[facility] , [address] [place] [address] Notes/Report: Neut Abs 3.19 1.50-6.50 K/cumm ImmGran Abs 0.01 0.00-0.10 K/cumm Lymphocyte Abs 1.02 0.80-3.30 K/cumm Cotton Abs 0.96 0.20-0.80 K/cumm Eos Abs 0.15 0.00-0.50 K/cumm Baso Abs 0.09 0.00-0.10 K/cumm Neut Pct 58.8 Interpretive Data Percent cell count reference ranges are not reported, since discordance with absolute values may lead to misinterpretation of CBC data. Current Interpretive Data was last revised on 2017. ImmGran Pct 0.2 Interpretive Data Percent cell count reference ranges are not reported, since discordance with absolute values may lead to misinterpretation of CBC data. Current Interpretive Data was last revised on 2017. Lymph Pct 18.8 Interpretive Data Percent cell count reference ranges are not reported, since discordance with absolute values may lead to misinterpretation of CBC data. Current Interpretive Data was last revised on 2017. Cotton Pct 17.7 Interpretive Data Percent cell count reference ranges are not reported, since discordance with absolute values may lead to misinterpretation of CBC data. Current Interpretive Data was last revised on 2017. Eos Pct 2.8 Interpretive Data Percent cell count reference ranges are not reported, since discordance with absolute values may lead to misinterpretation of CBC data. Current Interpretive Data was last revised on 2017. Baso Pct 1.7 Interpretive Data Percent cell count reference ranges are not reported, since discordance with absolute values may lead to misinterpretation of CBC data. Current Interpretive Data was last revised on 2017. eGFR (Not yet reviewed by alan barker) Interpretation: Performing Lab:[facility] , [address] [place] [address] Notes/Report: eGFR 50 >=60 mL/min/1.73 m2 Interpretive Data Reference Interval Normal >/= 90 [...] of Race in Diagnosing Kidney Disease, JASN 2020). The CKD-EPI equation should not be used for patients with unstable renal function and has not been validated in children and those over 70. Current interpretive data was last reviewed 2021. Reason For Referral No Information Medications Medication SIG (Take, Route, Frequency, Duration) Notes Start Date End Date Status Lisinopril 5 MG 1 tablet Orally twic e a day; Duration: 90 days Active Metoprolol Tartrate 50 MG TAKE 1 TABLET BY MOUTH TWICE A DAY WITH FOOD FOR 90 DAYS; Duration: 90 Active Propranolol HCl 10 MG TAKE 1 TABLET BY M OUTH EVERY DAY; Duration: 90 Active traZODone HCl 50 MG TAKE 1 TABLET BY RONNIE TH EVERYDAY AT BEDTIME; Duration: 90 Active Immunizations Vaccine Route Administration Date Status Comme nts Tdap IM Intramuscular 04/04/2020 Administered Pneumococcal polysaccharide PPV23 Unknown 11/22/2018 Administered Pneumococcal polysaccharide PPV23 Unknown 09/28/2019 Administered Pneumococcal conjugate PCV 13 IM Intramuscular 04/30/2018 Administered Influenza, high-dose seasonal, quadrivalent, preservative free >65 yrs Unknown 08/30/2017 Administered Influenza high dose > 65 [facility] IM Intramuscular 06/19/2016 Administered Influenza high dose > 65 [facility] IM Intramuscular 05/28/2018 Administered Influenza high dose > 65 [facility] Unknown 09/10/2021 Administered Influenza high dose > 65 [facility] IM Intramuscular 05/23/2023 Administered Influenza (split), 3 yrs and above Unknown 08/25/2013 Administered Social History Tobacco Use: Social History Observation Description Date Details (start date - stop date) Never Smoker NA - NA Tobacco Control (Standard) Question Answer Notes Tobacco use: Nonsmoker AUDIT-C (Standard) Question Answer Notes Did you have a drink containing alcohol in the p ast year? No Points 0 Interpretation Negative Problems Problem Type SNOMED Code ICD Code Onset Dates Problem Status W/U Status Risk Notes Problem Mixed hyperlipidemia (781981322) Mixed hyperlipidemia (E78.2) Active confirmed Problem Paroxysmal atrial fibrillation (690800023) Paroxysmal atrial fibrillation (I48.0) Active confirmed Problem Essential hypertension (69514600) Essential hypertension (I10) Active confirmed Problem Lower urinary tract symptoms due to benign prostatic hypertrophy (34776636134059) Benign prostatic hyperplasia with lower urinary tract symptoms (N40.1) Active confirmed Problem Dyslipidemia (991502473) Dyslipidemia (E78.5) Active confirmed Problem Chronic kidney disease stage 3A (disorder) (799926582) Stage 3a chronic kidney disease (CKD) (N18.31) Active confirmed Problem Obstructive sleep apnea syndrome (disorder) (37612307) Obstructive sleep apnea (adult) (pediatric) (G47.33) 01/20/20 19 Active confirmed Problem Non-neoplastic nevus (575277702) Nevus, non-neoplastic (I78.1) Active confirmed Problem Seborrheic keratosis (82935628) Other seborrheic keratosis (L82.1) Active confirmed Problem Atrial fibrillation (27878441) Unspecified atrial fibrillation (I48.91) 09/19/19 18 Active confirmed Vital Signs Heart Rate 65 /min 03/11/2025 Temperature 98.0 degrees Fahrenheit 03/11/2025 Height-cm 187.96 cm 03/11/2025 Oximetry 98 % 03/11/2025 Blood pressure diastolic 70 mm Hg 03/11/2025 Weight-kg 78.74 kg 03/11/2025 Height 74 in 03/11/2025 Blood pressure systolic 138 mm Hg 03/11/2025 Weight 173.6 lbs 03/11/2025 BMI 22.29 kg/m2 03/11/2025 Encounters Encounter Location Date Provider Diagnosis [facility] [address] [facility] [address] [place] [address] 10/01/2024 Gume Trujillo Medicare annual wellness visit, subsequent Z00.00 ; Essential hypertension I10 ; Dyslipidemia E78.5 ; Paroxysmal atrial fibrillation I48.0 ; Hyperglycemia R73.9 ; Benign prostatic hyperplasia with lower urinary tract symptoms N40.1 ; Nocturia R35.1 and Other fatigue R53.83 [facility] [address] [place] [address] 03/11/2025 Gume Trujillo Strain of tendon of left shoulder S46.912A ; Right inguinal hernia K40.90 ; Left inguinal hernia K40.90 ; Venous insufficiency of lower extremity I87.2 ; Essential hypertension I10 ; Dyslipidemia E78.5 and Stage 3a chronic kidney disease (CKD) N18.31 Assessments Encounter Date Diagnosis (ICD Code) Assessment Notes Treatment Notes Treatment Clinical Notes Section Notes 10/01/2024 Essential hypertension (ICD-10 - I10) 10/01/2024 Medicare annual wellness visit, subsequent (ICD-10 - Z00.00) 03/11/2025 Right inguinal hernia (ICD-10 - K40.90) refer to Dr Perry Correa 03/11/2025 Strain of tendon of left shoulder (ICD-10 - S46.912A) Depo Medrol 80 mg IM x 1 and Medrol Dose Pack to start tomorrow 03/11/2025 Left inguinal hernia (ICD-10 - K40.90) 10/01/2024 Dyslipidemia (ICD-10 - E78.5) 10/01/2024 Paroxysmal atrial fibrillation (ICD-10 - I48.0) 03/11/2025 Venous insufficiency of lower extremity (ICD-10 - I87.2) will see Dr Deanna Narayanan today 10/01/2024 Hyperglycemia (ICD-10 - R73.9) 03/11/2025 Essential hypertension (ICD-10 - I10) controlled 03/11/2025 Dyslipidemia (ICD-10 - E78.5) 10/01/2024 Benign prostatic hyperplasia with lower urinary tract symptoms (ICD-10 - N40.1) 03/11/2025 Stage 3a chronic kidney disease (CKD) (ICD-10 - N18.31) reviewed GFR. Card for Dr Levar Estrada provided. 10/01/2024 Nocturia (ICD-10 - R35.1) 10/01/2024 Other fatigue (ICD-10 - R53.83) Plan Of Treatment Pending Test Test Name Order Date Hemoglobin A1c 09/29/2023 Triiodothyronine (T3) 09/29/2023 CBC With Differential/Platelet CBC With Differential/Platelet 02/26/202 4 Sedimentation Rate-Westergren 09/29/2023 T4 and TSH 04/02/2024 T4 and TSH 09/29/2023 Lipid Panel And Chol/HDL Ratio Lipid Panel And Chol/HDL Ratio Chem-Comprehensive 09/29/2023 Chem-Comprehensive 04/02/2024 Urinalysis IH 09/29/2023 PSA, total 09/29/2023 CBC w auto diff 10/01/2024 CBC w auto diff 03/11/2025 Comprehensive metabolic panel (CMP) 03/2025 Comprehensive metabolic panel (CMP) 09/05 Differential Automated 10/01/2024 Differential Automated 03/11/2025 Hemoglobin A1C 10/01/2024 Lipid Panel 03/11/2025 Lipid Panel 10/01/2024 PSA, Screen 10/01/2024 T3 Free 10/01/2024 TSH Reflex FT4 10/01/2024 TSH Reflex FT4 03/11/2025 UA, reflex Micro to Culture 03/11/2025 UA, reflex Micro to Culture 10/01/2024 eGFR 03/11/2025 eGFR 10/01/2024 Next Appt Details Provider Name:Gume Trujillo, 09/30/2025 08:00:00 AM, [address] [facility] [facility] [address], [place], [address], Insurance Providers Payer Name Payer Address Payer Phone Subscriber Number Group Number Insured Name Patient Relationship to Insured Coverage Start Date Coverage End Date Medicare [address] [address] [place] [address] [id number] Jose Morfin Self - patient is the insured 9 [employer]- Senior Supplement [address] [address] [place] [address] [id number] Jose Morfin Self - patient is the insured Medications Administered Medication Instructions Date of Administration Dosage Notes DEPO-Medrol 03/11/2025 80 mg Pt recieved 80mg of Depo-Mederol in Right Buttocks. Lot #- [id number] Expiration date- 04/2025 Medical (General) History Medical History History ICD Code Atrial fibrillation: Newly d iagnosed early 2017. Converted spont on BB. Placed on NOAC., Date of Onset: 09/19/2017; Basal Cell Carcinoma; Hypertension: Controlled with medication , Date of Onset: 09/19/2017; Keratosis Seborrheic; Nevus, Non-neoplastic; THALIA on CPAP, Date of Onset: 01/19/2019; Sleep apnea: has severe slee p apnea SEVERE, AHI 35, RDI 47, BELOW 90% , 1%, MIN O2 SAT 80.8%, NON POSITIONAL. , Date of Onset: 05/12/2018; Surgical History Surgery Date(Month/Year) cataract; 2017-09-16 Skin cancer excised: Dr. Rosetta sheffield left side face near ear, Date of Procedure: ; 2021-04-12 trigger finger: Right ring finger, Date of Procedure: 05/23/2022; 2022-10-15 Hospitalization History Reason Date(Month/Year)
[2025-07-13 04:28] LABS: Alanine Aminotransferase 26 U/L (6-50); Albumin Level 4.2 g/dL (3.5-5.1); Alkaline Phosphatase 78 U/L (38-126); Anion Gap 5 mmol/L (4-12); Aspartate Amino Transferase 41 U/L (17-59); Bilirubin,Total 1.0 mg/dL (0.2-1.3); Blood Urea Nitrogen 32 mg/dL (9-20); Calcium 10.1 mg/dL (8.4-10.2); Carbon Dioxide 28 mmol/L (22-30); Chloride 102 mmol/L (98-107); Estimated CRCL calculation 45 ml/min; Estimated Glomerular Filt Rate 48; Glucose 147 mg/dL (65-110); Lipase 65 U/L (23-300); Potassium 4.1 mmol/L (3.4-5.0); Sodium 135 mmol/L (137-145); Total Protein 7.6 g/dL (6.3-8.2)
[2025-07-13 04:29] LABS: INR 1.1; Prothrombin Time 14.3 Seconds (11.1-14.7)
[2025-07-13 04:30] LABS: Partial Thromboplastin Time 24.8 Seconds (22.3-36.8)
[2025-07-13 06:10] LABS: Add Urine Microscopic? YES; Appearance Urine Clear (Clear); Glucose Urine UA Negative (Negative); Leukocyte Esterase Ur Negative LEU/UL (Negative); Nitrate Urine Negative (Negative); Specific Grav Ur > 1.045 (1.001-1.035)
[2025-07-13] MEDS: METOCLOPRAMIDE HCL INJ 10 MG/2 ML VIAL IV PUSH (06:24)
[2025-07-13] MEDS: HYDROmorphone HCL INJ (*CRX) 1 MG/ML SYR 0.5 MG IV PUSH (06:57)
--- NOTE | 2025-07-13 07:34 | PC.NURSE ---
Patient has sleep apnea and stated that patient has been sleeping intermittently since the pain medications; CPap in car at this time unable to wear machine due to the NG tube placement so this RN placed patient on 2L O2 NC.
--- NOTE | 2025-07-13 09:58 | PC.NURSE ---
this RN spoke to RICARDA Mike about the time left in the imaging study and clamped NG tube and the amount of pain the patient is now experiencing; new orders shall be placed on chart verbalized.
[2025-07-13] MEDS: HYDROmorphone HCL INJ (*CRX) 1 MG/ML SYR IV PUSH ×3 (10:03→20:08)
[2025-07-13] MEDS: METOPROLOL TARTRATE INJ 5 MG/5 ML VIAL IV PUSH (14:54)
[2025-07-13] MEDS: SODIUM CHLORIDE 0.9% IV 1,000 ML 999 ML IV CONT (14:54)
--- NOTE | 2025-07-13 15:28 | ECG_ITS ---
Test Date: 2025-07-13 15:33:44 Measurements Intervals [place] Rate: 132 P: 0 OH: 0 QRS: -13 QRSD: 89 T: 64 QT: 303 QTc: 449 Interpretive Statements ATRIAL FIBRILLATION WITH RAPID VENTRICULAR RESPONSE NONSPECIFIC ST & T-WAVE ABNORMALITY- ANTEROLAT/HIGH LAT LEADS ABNORMAL ECG No previous ECG available for comparison Electronically Signed On 07-13-2025 15:46:41 CREDENTIALER by Randal Krause D.O.
[2025-07-13] MEDS: dilTIAZem 100 MG/100 ML 100 MG/100 ML BAG IV CONT (15:52)
[2025-07-13] MEDS: SODIUM CHLORIDE 0.9% IV 1,000 ML 150 ML IV CONT (19:40)
== END 2025-07-13 20:09 | disposition short-term general hospital (02) ==
PROVIDERS: Emergency Medicine; Emergency Provider Emergency Medicine
DX: K91.30 Postprocedural intestinal obstruction, unspecified as to partial versus complete (principal); I48.91 Unspecified atrial fibrillation; I10 Essential (primary) hypertension; K42.9 Umbilical hernia without obstruction or gangrene; R18.8 Other ascites; R94.31 Abnormal electrocardiogram [ECG] [EKG]; Y83.8 Other surgical procedures as the cause of abnormal reaction of the patient, or of later complication, without mention of misadventure at the time of the procedure
CPT/HCPCS: 36415; 74177; 74250; 80053; 81001; 83605; 83690; 85025; 85610; 85730; 93005; 96361; 96365; 96366; 96375; 96376; 99285; J0283; J0616; J1163; J1171; J2765; J7030; J7120; Q9967